=== PATIENT | male | born 1975 | race Two or more races ===

== ENCOUNTER 2018-11-08 12:51 | Inpatient (IN) | payer MEDICARE, MEDICAID ==
[~2018-11-08 12:51] MED LIST: KETOROLAC TROMETHAMINE 60 MG/2 ML SDV ONE; LIDOCAINE 2% INJ-PF (20 MG/ML) 2 ML AMPUL ONE; METOCLOPRAMIDE HCL INJ/PF 10 MG/2 ML SDV ONE; ONDANSETRON HCL INJ/PF 4 MG/2 ML SDV ONE; PHENYLEPHRINE HCL INJ/PF 10 MG/1 ML SDV ONE; SUCCINYLCHOLINE CHLORIDE INJ 200 MG/10 ML VIAL ONE
[2018-11-08] MEDS ORDERED: MORPHINE SULFATE 10 MG/ML INJ IV ONE (13:39)
[2018-11-08] MEDS ORDERED: ONDANSETRON HCL INJ/PF 4 MG/2 ML SDV IV ONE (13:40)
[2018-11-08] MEDS ORDERED: CEFTRIAXONE 1 GM/D5W RTU 1 GM/50 ML RTUPB IV ONE (13:40)
[2018-11-08] MEDS ORDERED: NORMAL SALINE 1000 ML 1,000 ML IV ONE (13:40)
[2018-11-08] MEDS ORDERED: VANCOMYCIN HCL INJ 1000 MG VIAL IV ONE (13:40)
--- NOTE | 2018-11-08 13:42 | ER Document Report ---
ED Medical Screen (RME) - General Chief Complaint: Foot Injury Stated Complaint: LEFT FOOT INJURY Time Seen by Provider: 11/08/18 13:37 TRAVEL OUTSIDE OF THE [place] IN LAST 30 DAYS: No - HPI Notes: 11/08/18 13:41 Patient is a 43-year-old male with a history of asthma, seizures, insulin- dependent diabetes who presents complaining of left foot redness, swelling, purulent discharge, severe pain that developed over the past 3 days. He is still able to eat and drink, but does have a decreased p.o. intake because of the pain. He is urinating normally and having normal bowel movements. Denies ROJAS, fever, neck pain, URI, CP, SOB, Abd pain, dysuria, back pain. I have treated and performed a rapid initial assessment of this patient. A comprehensive ED assessment and evaluation of the patient, analysis of test results and completion of medical decision making process will be conducted by additional ED providers. PHYSICAL EXAMINATION: GENERAL: Well-appearing, well-nourished and in no acute distress. A&Ox4. Answers questions appropriately. LUNGS: Breath sounds clear to auscultation bilaterally and equal. No wheezes rales or rhonchi. HEART: Regular rate and rhythm without murmurs, rubs, gallops. Lt foot: + significant erythema, fluctuance, purulence, swelling, and tenderness noted (primarily near 5th digit/lateral dorsal foot). - Related Data Allergies/Adverse Reactions: No Known Allergies Allergy (Verified 11/08/18 13:02) Physical Exam - Vital signs Vitals: Temp Pulse Resp BP Pulse Ox 98.1 F 107 H 26 H 127/82 H 100 11/08/18 13:30 11/08/18 13:30 11/08/18 13:30 11/08/18 13:30 11/08/18 13:30 Course - Vital Signs Vital signs: Temp Pulse Resp BP Pulse Ox 98.1 F 107 H 26 H 127/82 H 100 11/08/18 13:30 11/08/18 13:30 11/08/18 13:30 11/08/18 13:30 11/08/18 13:30
--- NOTE | 2018-11-08 15:13 | RADIOLOGY REPORT (SQ) ---
EXAM DESCRIPTION: FOOT LEFT COMPLETE COMPLETED DATE/TIME: 11/08/2018 3:01 pm REASON FOR STUDY: significant infection lateral foot/5th digit; DM COMPARISON: None. NUMBER OF VIEWS: Three views. TECHNIQUE: AP, lateral and oblique radiographic images acquired of the left foot. LIMITATIONS: None. FINDINGS: MINERALIZATION: Normal. BONES: No acute fracture or dislocation. No worrisome bone lesions. JOINTS: Intact. SOFT TISSUES: Gas in the soft tissues of the base of the proximal 5th phalanx. No foreign body. OTHER: No other significant finding. IMPRESSION: No evidence of osteomyelitis. TECHNICAL DOCUMENTATION: JOB ID: [id number] [employer]- All Rights Reserved Reading location - IP/workstation name: [email or web address]
[2018-11-08] MEDS ORDERED: PIPERACILLIN/TAZOBACTAM 3.375 GM VIAL IV ONE (15:19)
[2018-11-08 15:26] LABS: VENOUS BLOOD BASE EXCESS 6.9 mmol/L; VENOUS BLOOD HCO3 33.4 mmol/L (20-32); VENOUS BLOOD PCO2 55.7 mmHg (35-63); VENOUS BLOOD PH 7.4 (7.30-7.42)
--- NOTE | 2018-11-08 15:50 | ER Document Report ---
ED General - General Chief Complaint: Foot Injury Stated Complaint: LEFT FOOT INJURY Time Seen by Provider: 11/08/18 13:37 Notes: Patient is a 43-year-old male with insulin-dependent diabetes mellitus that presents to the emergency department for chief complaint of left toe pain and foot pain. Patient states he noticed 2 days ago, that his foot was hurting him and got progressively worse, started getting red, and draining pus to the point he decided come to the emergency department. Denies prior history of wound infections, diabetic foot ulcers. He is on Levemir, is not sure what his sugars been running, [place] is from [place] town, [place] He currently rates his pain as a 9 out of 10 describes it as a severe pain in his foot, radiating up the leg. Denies any fevers, chills, night sweats, nausea, vomiting or abdominal pain. Past Medical History: Diabetes mellitus, seizure disorder, asthma Past Surgical History: Hernia repair Social History: Admits to smoking cigarettes, occasional alcohol use, denies illicit drug use. Family History: Reviewed and noncontributory for presenting illness Allergies: Reviewed, see documented allergy list. REVIEW OF SYSTEMS: Other than noted above, the 12 point review of systems was reviewed with the patient and were negative, all pertinent findings are included in the HPI. PHYSICAL EXAMINATION: Vital signs reviewed, nursing noted reviewed. GENERAL: Patient appears rather uncomfortable on exam HEAD: Atraumatic, normocephalic. EYES: Eyes appear normal, extraocular movements intact, sclera anicteric, conjunctiva are normal. ENT: nares patent, oropharynx clear without exudates. Moist mucous membranes. NECK: Normal range of motion, supple without lymphadenopathy LUNGS: Breath sounds clear to auscultation bilaterally and equal. No wheezes rales or rhonchi. HEART: Heart rate tachycardic, regular rhythm. ABDOMEN: Soft, nontender, normoactive bowel sounds. No rebound, guarding, or rigidity. No masses appreciated. EXTREMITIES: The left small toe, has ulcerations, purulent drainage, erythema, and tenderness to palpation, there is associated edema, with erythema extending proximally to the mid metatarsal, concerning for deep infection. There is no lymphangitis of the calf or thigh, the rest the patient's extremity exam is essentially unremarkable. NEUROLOGICAL: No focal neurological deficits. Moves all extremities spontaneously Motor and sensory grossly intact on exam. PSYCH: Normal mood, normal affect. SKIN: Warm, Dry, normal turgor, no rashes or lesions noted on exposed skin TRAVEL OUTSIDE OF THE [place] IN LAST 30 DAYS: No - Related Data Allergies/Adverse Reactions: No Known Allergies Allergy (Verified 11/08/18 13:02) Past Medical History - Social History Smoking Status: Current Every Day Smoker Frequency of alcohol use: None Drug Abuse: Marijuana Family History: Reviewed & Not Pertinent Patient has suicidal ideation: No Patient has homicidal ideation: No Pulmonary Medical History: Reports: Hx Asthma Neurological Medical History: Reports: Hx Seizures Endocrine Medical History: Reports: Hx Diabetes Mellitus Type 1 Renal/ Medical History: Denies: Hx Peritoneal Dialysis Past Surgical History: Reports: Hx Abdominal Surgery - hernia Physical Exam - Vital signs Vitals: Temp Pulse Resp BP Pulse Ox 98.1 F 107 H 26 H 127/82 H 100 11/08/18 13:30 11/08/18 13:30 11/08/18 13:30 11/08/18 13:30 11/08/18 13:30 Course - Re-evaluation Re-evalutation: Patient seen and examined vital signs reviewed. Laboratory data and imaging were ordered as appropriate for the patient's presen ting symptoms and complaint, with consideration of any critical or life threatening conditions that may be associated with their obtained history and exam as noted above. Patient was treated with IV fluids, morphine and Zofran, also started on IV Zosyn and vancomycin for broad-spectrum coverage of diabetic foot ulcer, with concern for possible osteomyelitis. wet gangrene, and was therefore addit ionally given IV clindamycin Results were reviewed when available and demonstrated gas gangrene noted on x- rays, patient had a mild leukocytosis, but clinically this is a concerning infection, and I called surgery to evaluate the patient as well as internal medicine to admit him. The patient was re-evaluated and was stable, from hemodynamic standpoint, after discussing with surgery, Dr. Zayas, they will plan to take him to the operating room for surgical amputation, and debridement of the patient's foot. Evaluation was most consistent with gas gangrene and wet gangrene of the right fourth and fifth digits of the foot, cellulitis Results were discussed with the patient at this point after careful consideration I feel that that patient should be admitted to the hospital. This was discussed with the patient that it is in the best interest for their care to be admitted for further evaluation and management. Patient agreed with this plan of care. A call was placed to the admitted physician, Dr. William who graciously accepted the patient onto their service. *Note is created using voice recognition software and may contain spelling, syntax or grammatical errors. Laboratory 11/08/18 11/08/18 11/08/18 14:50 14:50 16:30 WBC RBC Hgb Hct MCV MCH MCHC RDW Plt Count Seg Neutrophils % Lymphocytes % Monocytes % Eosinophils % Basophils % Absolute Neutrophils Absolute Lymphocytes Absolute Monocytes Absolute Eosinophils Absolute Basophils ESR VBG pH 7.40 VBG pCO2 55.7 VBG HCO3 33.4 H VBG Base Excess 6.9 Sodium Cancelled Potassium Cancelled Chloride Cancelled Carbon Dioxide Cancelled Anion Gap Cancelled BUN Cancelled Creatinine Cancelled Est GFR ( Amer) Cancelled Est GFR (Non-Af Amer) Cancelled Glucose Cancelled Hemoglobin A1c % Calcium Cancelled Total Bilirubin Cancelled Direct Bilirubin Cancelled Neonat Total Bilirubin Cancelled Neonat Direct Bilirubin Cancelled Neonat Indirect Bili Cancelled AST Cancelled ALT Cancelled Alkaline Phosphatase Cancelled Creatine Kinase C-Reactive Protein Total Protein Cancelled Albumin Cancelled Triglycerides 118 Cholesterol 179.47 LDL Cholesterol Direct 118 H VLDL Cholesterol 24.0 HDL Cholesterol 50 11/08/18 11/08/18 11/08/18 16:34 16:34 16:34 WBC 10.7 H RBC 4.48 Hgb 12.1 L Hct 36.6 L MCV 82 MCH 27.1 MCHC 33.1 RDW 13.6 Plt Count 563 H Seg Neutrophils % 61.8 Lymphocytes % 24.9 Monocytes % 7.6 Eosinophils % 4.8 Basophils % 0.9 Absolute Neutrophils 6.6 Absolute Lymphocytes 2.7 Absolute Monocytes 0.8 Absolute Eosinophils 0.5 Absolute Basophils 0.1 ESR 101 H VBG pH VBG pCO2 VBG HCO3 VBG Base Excess Sodium 139.2 Potassium 3.7 Chloride 97 L Carbon Dioxide 31 H Anion Gap 11 BUN 11 Creatinine 0.44 L Est GFR ( Amer) > 60 Est GFR (Non-Af Amer) > 60 Glucose 103 Hemoglobin A1c % Calcium 10.0 Total Bilirubin 0.3 Direct Bilirubin 0.3 Neonat Total Bilirubin Not Reportable Neonat Direct Bilirubin Not Reportable Neonat Indirect Bili Not Reportable AST 19 ALT 23 Alkaline Phosphatase 219 H Creatine Kinase C-Reactive Protein 21.4 H Total Protein 8.1 Albumin 4.1 Triglycerides Cholesterol LDL Cholesterol Direct VLDL Cholesterol HDL Cholesterol 11/08/18 11/08/18 16:34 16:34 WBC RBC Hgb Hct MCV MCH MCHC RDW Plt Count Seg Neutrophils % Lymphocytes % Monocytes % Eosinophils % Basophils % Absolute Neutrophils Absolute Lymphocytes Absolute Monocytes Absolute Eosinophils Absolute Basophils ESR VBG pH VBG pCO2 VBG HCO3 VBG Base Excess Sodium Potassium Chloride Carbon Dioxide Anion Gap BUN Creatinine Est GFR ( Amer) Est GFR (Non-Af Amer) Glucose Hemoglobin A1c % 12.2 H Calcium Total Bilirubin Direct Bilirubin Neonat Total Bilirubin Neonat Direct Bilirubin Neonat Indirect Bili AST ALT Alkaline Phosphatase Creatine Kinase 36 L C-Reactive Protein Total Protein Albumin Triglycerides Cholesterol LDL Cholesterol Direct VLDL Cholesterol HDL Cholesterol Foot X-Ray 11/08/18 13:39 IMPRESSION: No evidence of osteomyelitis. - Vital Signs Vital signs: Temp Pulse Resp BP Pulse Ox 97.8 F 78 14 137/65 H 100 11/08/18 21:36 11/08/18 21:36 11/08/18 21:36 11/08/18 21:36 11/08/18 21:36 - Laboratory Result Diagrams: 11/08/18 16:34 11/08/18 16:34 Laboratory results interpreted by me: 11/08/18 11/08/18 11/08/18 14:50 16:30 16:34 WBC 10.7 H Hgb 12.1 L Hct 36.6 L Plt Count 563 H ESR VBG HCO3 33.4 H Chloride Carbon Dioxide Creatinine Hemoglobin A1c % Alkaline Phosphatase Creatine Kinase C-Reactive Protein LDL Cholesterol Direct 118 H 11/08/18 11/08/18 11/08/18 16:34 16:34 16:34 WBC Hgb Hct Plt Count ESR 101 H VBG HCO3 Chloride 97 L Carbon Dioxide 31 H Creatinine 0.44 L Hemoglobin A1c % Alkaline Phosphatase 219 H Creatine Kinase 36 L C-Reactive Protein 21.4 H LDL Cholesterol Direct 11/08/18 16:34 WBC Hgb Hct Plt Count ESR VBG HCO3 Chloride Carbon Dioxide Creatinine Hemoglobin A1c % 12.2 H Alkaline Phosphatase Creatine Kinase C-Reactive Protein LDL Cholesterol Direct Discharge - Discharge Clinical Impression: Cellulitis of foot, Wet gangrene, Diabetic infection of left foot Condition: Stable Disposition: ADMITTED INPATIENT Admitting Provider: Nataliia (Hospitalist) Unit Admitted: OR
[2018-11-08] MEDS ORDERED: CLINDAMYCIN 600 MG/D5W RTU 600 MG/50 ML RTUPB IV ONE (15:59)
[2018-11-08] MEDS ORDERED: FENTANYL CITRATE INJ/PF 100 MCG/2 ML AMPUL IV ONE (16:38)
[2018-11-08 16:48] LABS: ABSOLUTE BASOPHILS # (AUTO) 0.1 10^3/uL (0.0-0.2); ABSOLUTE EOSINOPHILS # (AUTO) 0.5 10^3/uL (0.0-0.6); ABSOLUTE LYMPHOCYTES (AUTO) 2.7 10^3/uL (0.5-4.7); ABSOLUTE MONOCYTES (AUTO) 0.8 10^3/uL (0.1-1.4); ABSOLUTE NEUT (AUTO) 6.6 10^3/uL (1.7-8.2); BASOPHILS % (AUTO) 0.9 % (0-2); EOSINOPHILS % (AUTO) 4.8 % (0-6); HEMATOCRIT 36.6 % (37.9-51.0); HEMOGLOBIN 12.1 g/dL (13.5-17.0); LYMPHOCYTES % (AUTO) 24.9 % (13-45); MEAN CORPUSCULAR HEMOGLOBIN 27.1 pg (27.0-33.4); MEAN CORPUSCULAR HGB CONC 33.1 g/dL (32.0-36.0); MEAN CORPUSCULAR VOLUME 82 fl (80-97); MONOCYTES % (AUTO) 7.6 % (3-13); PLATELET COUNT 563 10^3/uL (150-450); RED BLOOD COUNT 4.48 10^6/uL (4.35-5.55); RED CELL DISTRIBUTION WIDTH 13.6 % (11.5-14.0); SEGMENTED NEUTROPHILS % (AUTO) 61.8 % (42-78); TOTAL CELLS COUNTED % (AUTO) 100 %; WHITE BLOOD COUNT 10.7 10^3/uL (4.0-10.5)
[2018-11-08 17:09] LABS: ALANINE AMINOTRANSFERASE 23 U/L (21-72); ALBUMIN 4.1 g/dL (3.5-5.0); ALKALINE PHOSPHATASE 219 U/L (38-126); ANION GAP 11 (5-19); ASPARTATE AMINO TRANSFERASE 19 U/L (17-59); BILIRUBIN,DIRECT 0.3 mg/dL (0.0-0.4); BILIRUBIN,TOTAL 0.3 mg/dL (0.2-1.3); BLOOD UREA NITROGEN 11 mg/dL (7-20); C-REACTIVE PROTEIN 21.4 mg/L (<10.0); CARBON DIOXIDE 31 mmol/L (22-30); CHLORIDE 97 mmol/L (98-107); GLUCOSE 103 mg/dL (75-110); POTASSIUM 3.7 mmol/L (3.6-5.0); SODIUM 139.2 mmol/L (137-145); TOTAL PROTEIN 8.1 g/dL (6.3-8.2)
[2018-11-08] MEDS ORDERED: ACETAMINOPHEN 325 MG TABLET PO PRN (17:47)
[2018-11-08] MEDS ORDERED: DEXTROSE 50%-WATER 25 GM/50 ML DISP.SYRIN IV PRN ×4 (17:47→18:04)
[2018-11-08] MEDS ORDERED: PROMETHAZINE HCL INJ 25 MG/1 ML VIAL IV PRN ×3 (17:47→19:55)
[2018-11-08] MEDS ORDERED: DEXTROSE 40% GEL 15 GM TUBE PO PRN ×4 (17:47→18:04)
[2018-11-08] MEDS ORDERED: TEMAZEPAM 7.5 MG CAPSULE PO PRN (17:47)
[2018-11-08] MEDS ORDERED: ONDANSETRON 4 MG TAB.RAPDIS PO PRN (17:47)
[2018-11-08] MEDS ORDERED: GLUCAGON,HUMAN RECOMB 1 MG INJ SUBCUT PRN (17:47)
[2018-11-08] MEDS ORDERED: VANCOMYCIN HCL 0 MG in DEXTROSE 5%-WATER 250 ML IV NR (18:00)
[2018-11-08] MEDS ORDERED: VANCOMYCIN HCL INJ 1000 MG VIAL IV PRN (18:03)
[2018-11-08] MEDS ORDERED: GLUCAGON,HUMAN RECOMB 1 MG INJ IM PRN (18:04)
--- NOTE | 2018-11-08 18:04 | PDOC H&P ---
History of Present Illness Admission Date/PCP: 11/08/18 17:24 History of Present Illness: MURALI MILLAN is a 43 year old male past medical history of diabetes, seizure disorder currently not any medication, does not remember the last time he had a seizure, asthma, tobacco abuse, hypertension, presented to ED complaining of left lower extremity pain. He says about to 3 days ago he started to notice a blister on the dorsal aspect of left fifth metatarsal which subsequently popped and he noticed progressively worsening pain, swelling, erythema. Pain is constant, sharp, radiating proximally. Denies any trauma to the foot, compliant with his diabetic medication, denies any fever, chills, nausea, vomiting, diarrhea, constipation or any urinary symptoms. Foot x-ray negative for osteomyelitis however elevated CRP/ESR. Surgery was consulted and plan is for possible surgery tonight. Past Medical History Pulmonary Medical History: Reports: Asthma Neurological Medical History: Reports: Seizures Endocrine Medical History: Reports: Diabetes Mellitus Type 1 Social History Smoking Status: Current Every Day Smoker Family History Parental Family History Reviewed: Yes Children Family History Reviewed: Yes Sibling(s) Family History Reviewed.: Yes Medication/Allergy Allergies/Adverse Reactions: No Known Allergies Allergy (Verified 11/08/18 13:02) Physical Exam Vital Signs: Temp Pulse Resp BP Pulse Ox 98.1 F 107 H 26 H 127/82 H 100 11/08/18 13:30 11/08/18 13:30 11/08/18 13:30 11/08/18 13:30 11/08/18 13:30 Intake & Output 11/07/18 11/08/18 11/09/18 06:59 06:59 06:59 Intake Total 1000 Balance 1000 Weight 54.4 kg General appearance: PRESENT: mild distress Neck exam: ABSENT: carotid bruit, JVD, lymphadenopathy, thyromegaly Respiratory exam: PRESENT: clear to auscultation mila. ABSENT: rales, rhonchi, wheezes Cardiovascular exam: PRESENT: RRR. ABSENT: diastolic murmur, rubs, systolic murmur GI/Abdominal exam: PRESENT: normal bowel sounds, soft. ABSENT: distended, gu arding, mass, organolmegaly, rebound, tenderness Extremities exam: PRESENT: other - Left metatarsal dorsal aspect ulcerations, purulent drainage, erythema, and tenderness to palpation, there is associated edema, with erythema extending t foot swelling. Neurological exam: PRESENT: alert, awake, oriented to person, oriented to place, oriented to time, oriented to situation, CN II-XII grossly intact. ABSENT: motor sensory deficit Results Laboratory Results: 11/08/18 16:34 11/08/18 16:34 11/08/18 11/08/18 11/08/18 14:50 14:50 16:34 WBC 10.7 H RBC 4.48 Hgb 12.1 L Hct 36.6 L MCV 82 MCH 27.1 MCHC 33.1 RDW 13.6 Plt Count 563 H Seg Neutrophils % 61.8 Lymphocytes % 24.9 Monocytes % 7.6 Eosinophils % 4.8 Basophils % 0.9 Absolute Neutrophils 6.6 Absolute Lymphocytes 2.7 Absolute Monocytes 0.8 Absolute Eosinophils 0.5 Absolute Basophils 0.1 VBG pH 7.40 VBG pCO2 55.7 VBG HCO3 33.4 H VBG Base Excess 6.9 Sodium Cancelled Potassium Cancelled Chloride Cancelled Carbon Dioxide Cancelled Anion Gap Cancelled BUN Cancelled Creatinine Cancelled Est GFR ( Amer) Cancelled Est GFR (Non-Af Amer) Cancelled Glucose Cancelled Calcium Cancelled Total Bilirubin Cancelled AST Cancelled ALT Cancelled Alkaline Phosphatase Cancelled C-Reactive Protein Total Protein Cancelled Albumin Cancelled 11/08/18 16:34 WBC RBC Hgb Hct MCV MCH MCHC RDW Plt Count Seg Neutrophils % Lymphocytes % Monocytes % Eosinophils % Basophils % Absolute Neutrophils Absolute Lymphocytes Absolute Monocytes Absolute Eosinophils Absolute Basophils VBG pH VBG pCO2 VBG HCO3 VBG Base Excess Sodium 139.2 Potassium 3.7 Chloride 97 L Carbon Dioxide 31 H Anion Gap 11 BUN 11 Creatinine 0.44 L Est GFR ( Amer) > 60 Est GFR (Non-Af Amer) > 60 Glucose 103 Calcium 10.0 Total Bilirubin 0.3 AST 19 ALT 23 Alkaline Phosphatase 219 H C-Reactive Protein 21.4 H Total Protein 8.1 Albumin 4.1 Impressions: Foot X-Ray 11/08/18 13:39 IMPRESSION: No evidence of osteomyelitis. Assessment and Plan - Diagnosis (1) Wet gangrene Is this a current diagnosis for this admission?: Yes Plan: Due to complication of underlying diabetes. Continue IV Zosyn and vancomycin. Follow-up wound and blood culture. Surgery consulted, follow-up recommendation. Will order bilateral lower extremity arterial Doppler. (2) Diabetes mellitus type 2 in nonobese Is this a current diagnosis for this admission?: No Plan: Patient reports compliance. A1c pending. Diabetic diet, sliding scale insulin, pre-meal insulin, and acting insulin, adjust dosage as needed. (3) HTN (hypertension) Is this a current diagnosis for this admission?: No Plan: Reports history of hypertension. Currently normotensive. Monitor vitals. IV hydralazine. Patient can be started on AFSHIN inhibitors if needed. (4) History of seizure Is this a current diagnosis for this admission?: No Plan: Patient endorses history of seizure however does not remember when he had a seizure and he is not taking any seizure meds. Continue seizure precaution. PRN benzos. Outpatient PCP/neurology follow-up.
[2018-11-08] MEDS ORDERED: LORAZEPAM INJ 2 MG/1 ML VIAL IV PRN (18:13)
[2018-11-08] MEDS ORDERED: NICOTINE 7 MG/24 HR PATCH.TD24 TD PRN (18:14)
--- NOTE | 2018-11-08 18:20 | PDOC CONSULTATION ---
Consultation Consult Date: 11/08/18 Provider Consulted: CHRISTY YOUNG Consult reason:: diabetic foot infection History of Present Illness Admission Date/PCP: 11/08/18 17:24 History of Present Illness: MURALI MILLAN is a 43 year old male past medical history of diabetes, seizure disorder currently not any medication, does not remember the last time he had a seizure, asthma, tobacco abuse, hypertension, presented to ED complaining of left lower extremity pain. He says about to 3 days ago he started to notice a blister on the dorsal aspect of left fifth metatarsal which subsequently popped and he noticed progressively worsening pain, swelling, erythema. Pain is constant, sharp, radiating proximally. Denies any trauma to the foot, compliant with his diabetic medication, denies any fever, chills, nausea, vomiting, diarrhea, constipation or any urinary symptoms. Past Medical History Pulmonary Medical History: Reports: Asthma Neurological Medical History: Reports: Seizures Endocrine Medical History: Reports: Diabetes Mellitus Type 1 Past Surgical History Past Surgical History: Reports: Other - inguinal hernia repair, right Social History Smoking Status: Current Every Day Smoker Family History Parental Family History Reviewed: No Children Family History Reviewed: NA Sibling(s) Family History Reviewed.: NA Medication/Allergy Allergies/Adverse Reactions: No Known Allergies Allergy (Verified 11/08/18 13:02) Review of Systems Constitutional: ABSENT: chills, fever(s), headache(s), weight gain, weight loss Eyes: ABSENT: visual disturbances Ears: ABSENT: hearing changes Nose, Mouth, and Throat: ABSENT: as per HPI, headache(s), mouth pain, sore throat, vertigo, other Breasts: ABSENT: as per HPI, other Cardiovascular: ABSENT: as per HPI, chest pain, dyspnea on exertion, edema, orthropnea, palpitations, other Respiratory: ABSENT: as per HPI, cough, dyspnea, hemoptysis, sputum, other Gastrointestinal: ABSENT: as per HPI, abdominal pain, bloating, coffee ground emesis, constipation, diarrhea, dysphagia, heartburn, hematemesis, hematochezia, melena, nausea, vomiting, other Genitourinary: ABSENT: dysuria, hematuria Musculoskeletal: PRESENT: other - left foot swelling and pain Integumentary: ABSENT: rash, wounds Neurological: ABSENT: abnormal gait, abnormal speech, confusion, dizziness, focal weakness, syncope Psychiatric: ABSENT: anxiety, depression, homidical ideation, suicidal ideation Endocrine: ABSENT: cold intolerance, heat intolerance, polydipsia, polyuria Hematologic/Lymphatic: ABSENT: easy bleeding, easy bruising Physical Exam Vital Signs: Temp Pulse Resp BP Pulse Ox 98.1 F 107 H 26 H 127/82 H 100 11/08/18 13:30 11/08/18 13:30 11/08/18 13:30 11/08/18 13:30 11/08/18 13:30 Intake & Output 11/07/18 11/08/18 11/09/18 06:59 06:59 06:59 Intake Total 1000 Balance 1000 Weight 54.4 kg General appearance: PRESENT: disheveled Head exam: PRESENT: normocephalic Eye exam: PRESENT: EOMI Ear exam: PRESENT: normal external ear exam Mouth exam: PRESENT: moist Teeth exam: PRESENT: poor dentation Neck exam: PRESENT: full ROM Respiratory exam: PRESENT: clear to auscultation mila Cardiovascular exam: PRESENT: RRR Pulses: PRESENT: normal radial pulses, normal femoral pulses GI/Abdominal exam: PRESENT: soft Rectal exam: PRESENT: deferred Extremities exam: PRESENT: other - left 4th 5th toe web spce draining pus ulcer on dosal aspect of left 5th toe cellulitis extending up to mid forefoot. Psychiatric exam: PRESENT: appropriate affect Skin exam: PRESENT: dry Results Laboratory Results: 11/08/18 16:34 11/08/18 16:34 11/08/18 11/08/18 11/08/18 14:50 14:50 16:34 WBC 10.7 H RBC 4.48 Hgb 12.1 L Hct 36.6 L MCV 82 MCH 27.1 MCHC 33.1 RDW 13.6 Plt Count 563 H Seg Neutrophils % 61.8 Lymphocytes % 24.9 Monocytes % 7.6 Eosinophils % 4.8 Basophils % 0.9 Absolute Neutrophils 6.6 Absolute Lymphocytes 2.7 Absolute Monocytes 0.8 Absolute Eosinophils 0.5 Absolute Basophils 0.1 VBG pH 7.40 VBG pCO2 55.7 VBG HCO3 33.4 H VBG Base Excess 6.9 Sodium Cancelled Potassium Cancelled Chloride Cancelled Carbon Dioxide Cancelled Anion Gap Cancelled BUN Cancelled Creatinine Cancelled Est GFR ( Amer) Cancelled Est GFR (Non-Af Amer) Cancelled Glucose Cancelled Calcium Cancelled Total Bilirubin Cancelled AST Cancelled ALT Cancelled Alkaline Phosphatase Cancelled C-Reactive Protein Total Protein Cancelled Albumin Cancelled 11/08/18 16:34 WBC RBC Hgb Hct MCV MCH MCHC RDW Plt Count Seg Neutrophils % Lymphocytes % Monocytes % Eosinophils % Basophils % Absolute Neutrophils Absolute Lymphocytes Absolute Monocytes Absolute Eosinophils Absolute Basophils VBG pH VBG pCO2 VBG HCO3 VBG Base Excess Sodium 139.2 Potassium 3.7 Chloride 97 L Carbon Dioxide 31 H Anion Gap 11 BUN 11 Creatinine 0.44 L Est GFR ( Amer) > 60 Est GFR (Non-Af Amer) > 60 Glucose 103 Calcium 10.0 Total Bilirubin 0.3 AST 19 ALT 23 Alkaline Phosphatase 219 H C-Reactive Protein 21.4 H Total Protein 8.1 Albumin 4.1 Impressions: Foot X-Ray 11/08/18 13:39 IMPRESSION: No evidence of osteomyelitis. Assessment & Plan - Plan Summary Plan Summary: left diabtic foot infection with gas gangrene noted in left lat foot 4th and 5th toe infection recommend uregent left 4th and 5th toe amputation. pt need immediate surgey due to spreading cellulitis risks benifits discussed including need for additional surgery if infection cannot be cleared with toe amp we discussed poss future left bka he understands and ageees to proceed.
[2018-11-08 19:14] LABS: CHOLESTEROL 179.47 mg/dL (0-200); TRIGLYCERIDES 118 mg/dL (<150)
[2018-11-08 19:28] LABS: DIRECT LDL 118 mg/dL (<100)
[2018-11-08] MEDS ORDERED: ACETAMINOPHEN 1,000 MG/100 ML RTUPB IV ONE (19:47)
[2018-11-08] MEDS ORDERED: DEXMEDETOMIDINE INJ 80 MCG/20 ML VIAL IV ONE (19:47)
[2018-11-08] MEDS ORDERED: FENTANYL CITRATE INJ/PF 100 MCG/2 ML AMPUL ONE (19:47)
[2018-11-08] MEDS ORDERED: KETAMINE HCL INJ 500 MG/10 ML VIAL ONE (19:47)
[2018-11-08] MEDS ORDERED: PROPOFOL INJ 200 MG/20 ML VIAL IV ONE (19:47)
[2018-11-08] MEDS ORDERED: MIDAZOLAM 2 MG/2 ML INJ ONE (19:47)
[2018-11-08] MEDS ORDERED: FENTANYL CITRATE INJ/PF 100 MCG/2 ML AMPUL IV PRN ×3 (19:55)
[2018-11-08] MEDS ORDERED: ONDANSETRON HCL INJ/PF 4 MG/2 ML SDV IV PRN (19:55)
[2018-11-08] MEDS ORDERED: DIPHENHYDRAMINE HCL 50 MG/ML VIAL IV PRN (19:55)
[2018-11-08] MEDS ORDERED: MEPERIDINE HCL/PF INJ 25 MG/1 ML DISP.SYRIN IV PRN (19:55)
[2018-11-08] MEDS ORDERED: HYDROMORPHONE HCL INJ/PF 2 MG/ML AMPULE ONE (20:34)
[2018-11-08] MEDS ORDERED: BUPIVACAINE HCL 0.25 % INJ/PF (2.5 MG/1 ML) 30 ML VIAL ONE (20:41)
--- NOTE | 2018-11-08 21:26 | Operative Report ---
Nonrecallable Operative Report DATE OF SURGERY: 11/08/18 PREOPERATIVE DIAGNOSIS: diabetic foot infection left foot POSTOPERATIVE DIAGNOSIS: diabetic foot infection left foot OPERATION: left 4th and 5th toe amputation SURGEON: CHRISTY YOUNG ANESTHESIA: GA TISSUE REMOVED OR ALTERED: left 4 and 5th toes COMPLICATIONS: none ESTIMATED BLOOD LOSS: 25 INTRAOPERATIVE FINDINGS: see dictation PROCEDURE: see dictation
[2018-11-08] MEDS: MORPHINE SULFATE 10 MG/ML INJ IV PRN (22:54)
[2018-11-08] MEDS: INSULIN LISPRO 100 UNIT/ML 3 ML VIAL SUBCUT SCH (22:55)
[2018-11-08] MEDS: INSULIN GLARGINE,HUM.REC.ANLOG 1,000 UNIT/10 ML VIAL SUBCUT SCH (22:55)
[2018-11-08] MEDS: NORMAL SALINE 1000 ML 1,000 ML IV PRN (23:07)
[2018-11-08] MEDS: PIPERACILLIN SODIUM/TAZOBACTAM 4.5 GM in NORMAL SALINE 100 ML IV SCH (23:42)
[2018-11-09] MEDS ORDERED: VANCOMYCIN HCL 1,000 MG in DEXTROSE 5%-WATER 250 ML IV SCH (02:00)
[2018-11-09] MEDS ORDERED: VANCOMYCIN HCL INJ 1000 MG VIAL ONE (02:37)
--- NOTE | 2018-11-09 03:20 | OPERATIVE REPORT E ---
Operative Report NAME: MURALI MILLAN : 1975 AGE: 43Y DATE OF SURGERY: 11/08/2018 ROOM: 330 PREOPERATIVE DIAGNOSIS: LEFT DIABETIC FOOT INFECTION. POSTOPERATIVE DIAGNOSIS: LEFT DIABETIC FOOT INFECTION. OPERATION: Left fourth and fifth toe amputation. SURGEON: CHRISTY YOUNG M.D. PROCEDURE: The patient was brought to the operating room awake, alert, and in stable condition. Placed on the operating table in supine position, induced under general anesthesia, intubated. The left foot and leg were prepped and draped in the usual sterile manner for the procedure. After appropriate time-out and site verification, a racquet-type incision was made on the lateral aspect of the left foot from the web space between the third and fourth toe to the lateral aspect of the base of the fifth metatarsal. The dissection was carried down through subcutaneous tissue with the knife and we continued our dissection with a 10-blade through the subcutaneous tissue and tendon down to the periosteum of the metatarsal bone. Once the incision was complete, we raised the periosteum off the metatarsal and divided both the fourth and fifth one with the bone cutter. We continued our dissection through the muscles with Bovie cautery and then removed the specimen. The base of it appeared to be clean without any further evidence of purulent drainage. The purulent drainage from the specimen was cultured and sent to lab. Once the hemostasis was obtained with Bovie cautery, oversewing the small vessels with 3-0 Vicryl, we then reapproximated the posterior and anterior skin with interrupted placed [id number] 2-0 nylon suture. The wound was then packed with a Xeroform gauze between the placed sutures, as they were placed loosely. A sterile dressing was applied, which completed the procedure. Estimated blood loss was 25 mL. Sponge and needle counts were correct x2. The patient was awakened in the operating room, extubated, and transferred to recovery in stable condition. No complications. DICTATING PHYSICIAN: CHRISTY YOUNG M.D. [id number] PHY#: [id number] ID: [id number] JOB#: [id number] ACCT: [id number] cc:CHRISTY YOUNG M.D. >
[2018-11-09] MEDS ORDERED: PIPERACILLIN/TAZOBACTAM 4.5 GM VIAL IV ONE (03:41)
[2018-11-09] MEDS: PIPERACILLIN SODIUM/TAZOBACTAM 4.5 GM in NORMAL SALINE 100 ML IV SCH ×4 (06:05→23:59)
[2018-11-09 06:09] LABS: ABSOLUTE BASOPHILS # (AUTO) 0.1 10^3/uL (0.0-0.2); ABSOLUTE EOSINOPHILS # (AUTO) 0.4 10^3/uL (0.0-0.6); ABSOLUTE MONOCYTES (AUTO) 0.7 10^3/uL (0.1-1.4); ABSOLUTE NEUT (AUTO) 4.6 10^3/uL (1.7-8.2); EOSINOPHILS % (AUTO) 4.9 % (0-6); HEMATOCRIT 32.3 % (37.9-51.0); HEMOGLOBIN 10.6 g/dL (13.5-17.0); LYMPHOCYTES % (AUTO) 26.2 % (13-45); MEAN CORPUSCULAR HEMOGLOBIN 26.8 pg (27.0-33.4); MEAN CORPUSCULAR HGB CONC 32.7 g/dL (32.0-36.0); MEAN CORPUSCULAR VOLUME 82 fl (80-97); MONOCYTES % (AUTO) 8.5 % (3-13); PLATELET COUNT 408 10^3/uL (150-450); RED BLOOD COUNT 3.94 10^6/uL (4.35-5.55); RED CELL DISTRIBUTION WIDTH 13.7 % (11.5-14.0); SEGMENTED NEUTROPHILS % (AUTO) 59.4 % (42-78); TOTAL CELLS COUNTED % (AUTO) 100 %; WHITE BLOOD COUNT 7.8 10^3/uL (4.0-10.5)
[2018-11-09] MEDS: MORPHINE SULFATE 10 MG/ML INJ IV PRN ×6 (06:22→23:07)
[2018-11-09] MEDS: PANTOPRAZOLE SODIUM 40 MG TABLET.DR PO SCH ×2 (06:22→17:46)
[2018-11-09 06:34] LABS: ANION GAP 8 (5-19); BLOOD UREA NITROGEN 10 mg/dL (7-20); CALCIUM 8.5 mg/dL (8.4-10.2); CARBON DIOXIDE 29 mmol/L (22-30); CHLORIDE 96 mmol/L (98-107); GLUCOSE 364 mg/dL (75-110); POTASSIUM 4.2 mmol/L (3.6-5.0); SODIUM 132.7 mmol/L (137-145)
[2018-11-09] MEDS: INSULIN LISPRO 100 UNIT/ML 3 ML VIAL SUBCUT SCH ×4 (08:07→21:43)
[2018-11-09] MEDS ORDERED: DIPHENHYDRAMINE HCL 25 MG CAPSULE PO PRN (09:18)
[2018-11-09] MEDS: ENOXAPARIN SODIUM INJ 40 MG/0.4 ML DISP.SYRIN SUBCUT SCH (09:31)
--- NOTE | 2018-11-09 10:30 | PDOC PROGRESS REPORT ---
Subjective Progress Note for:: 11/09/18 Subjective:: Having some pain; has not been out of bed. Reason For Visit: DIABETIC FOOT,DIABETES Physical Exam Vital Signs: Temp Pulse Resp BP Pulse Ox 97.8 F 84 17 148/89 H 100 11/09/18 08:18 11/09/18 08:18 11/09/18 08:18 11/09/18 08:18 11/09/18 08:18 Intake & Output 11/08/18 11/09/18 11/10/18 06:59 06:59 06:59 Intake Total 2750 Output Total 950 Balance 1800 Weight 57.3 kg General appearance: PRESENT: no acute distress Extremities exam: PRESENT: other - Dressing removed. No active drainage or foul smell. There is all the moderate cellulitis of the dorsal foot. Massaged and some blood evacuated. The inferior-most suture removed. Wound irrigated after pieces of Xeroform removed between the sutures. Wound redressed Results Laboratory Results: 11/09/18 05:04 11/09/18 05:04 11/08/18 11/08/18 11/08/18 14:50 14:50 16:30 WBC RBC Hgb Hct MCV MCH MCHC RDW Plt Count Seg Neutrophils % Lymphocytes % Monocytes % Eosinophils % Basophils % Absolute Neutrophils Absolute Lymphocytes Absolute Monocytes Absolute Eosinophils Absolute Basophils VBG pH 7.40 VBG pCO2 55.7 VBG HCO3 33.4 H VBG Base Excess 6.9 Sodium Cancelled Potassium Cancelled Chloride Cancelled Carbon Dioxide Cancelled Anion Gap Cancelled BUN Cancelled Creatinine Cancelled Est GFR ( Amer) Cancelled Est GFR (Non-Af Amer) Cancelled Glucose Cancelled Calcium Cancelled Magnesium Total Bilirubin Cancelled AST Cancelled ALT Cancelled Alkaline Phosphatase Cancelled C-Reactive Protein Total Protein Cancelled Albumin Cancelled Triglycerides 118 Cholesterol 179.47 LDL Cholesterol Direct 118 H VLDL Cholesterol 24.0 HDL Cholesterol 50 11/08/18 11/08/18 11/09/18 16:34 16:34 05:04 WBC 10.7 H 7.8 RBC 4.48 3.94 L Hgb 12.1 L 10.6 L Hct 36.6 L 32.3 L MCV 82 82 MCH 27.1 26.8 L MCHC 33.1 32.7 RDW 13.6 13.7 Plt Count 563 H 408 Seg Neutrophils % 61.8 59.4 Lymphocytes % 24.9 26.2 Monocytes % 7.6 8.5 Eosinophils % 4.8 4.9 Basophils % 0.9 1.0 Absolute Neutrophils 6.6 4.6 Absolute Lymphocytes 2.7 2.0 Absolute Monocytes 0.8 0.7 Absolute Eosinophils 0.5 0.4 Absolute Basophils 0.1 0.1 VBG pH VBG pCO2 VBG HCO3 VBG Base Excess Sodium 139.2 Potassium 3.7 Chloride 97 L Carbon Dioxide 31 H Anion Gap 11 BUN 11 Creatinine 0.44 L Est GFR ( Amer) > 60 Est GFR (Non-Af Amer) > 60 Glucose 103 Calcium 10.0 Magnesium Total Bilirubin 0.3 AST 19 ALT 23 Alkaline Phosphatase 219 H C-Reactive Protein 21.4 H Total Protein 8.1 Albumin 4.1 Triglycerides Cholesterol LDL Cholesterol Direct VLDL Cholesterol HDL Cholesterol 11/09/18 05:04 WBC RBC Hgb Hct MCV MCH MCHC RDW Plt Count Seg Neutrophils % Lymphocytes % Monocytes % Eosinophils % Basophils % Absolute Neutrophils Absolute Lymphocytes Absolute Monocytes Absolute Eosinophils Absolute Basophils VBG pH VBG pCO2 VBG HCO3 VBG Base Excess Sodium 132.7 L Potassium 4.2 Chloride 96 L Carbon Dioxide 29 Anion Gap 8 BUN 10 Creatinine 0.48 L Est GFR ( Amer) > 60 Est GFR (Non-Af Amer) > 60 Glucose 364 H Calcium 8.5 Magnesium 1.6 Total Bilirubin AST ALT Alkaline Phosphatase C-Reactive Protein Total Protein Albumin Triglycerides Cholesterol LDL Cholesterol Direct VLDL Cholesterol HDL Cholesterol 11/08/18 16:34 Creatine Kinase 36 L Impressions: Foot X-Ray 11/08/18 13:39 IMPRESSION: No evidence of osteomyelitis. Assessment & Plan - Diagnosis (1) Diabetic infection of left foot Is this a current diagnosis for this admission?: Yes Plan: Impression: Severe diabetic foot infection status post a day 1 left fifth and fourth ray amputations, with wound approximation; assisting soft tissue erythema and edema forefoot. Recommendations: 1. Continue leg elevation, intravenous antibiotics. 2. Additional sutures may require removal pending condition of foot in the next 24 hours. This was explained to the patient.
[2018-11-09] MEDS: IPRATROPIUM/ALBUTEROL 0.5-2.5 MG/3 ML AMPUL NEB PRN (11:04)
[2018-11-09 12:01] LABS: APPEARANCE,URINE CLEAR; BILIRUBIN,URINE NEGATIVE (NEGATIVE); COLOR,URINE STRAW; GLUCOSE, URINE >=500 mg/dL (NEGATIVE); KETONES,URINE NEGATIVE (NEGATIVE); LEUKOCYTE ESTERASE,URINE NEGATIVE (NEGATIVE); NITRITE,URINE NEGATIVE (NEGATIVE); PROTEIN,URINE NEGATIVE (NEGATIVE); URINE SPECIFIC GRAVITY 1.025; UROBILINOGEN,URINE NEGATIVE mg/dL (<2.0)
[2018-11-09] MEDS: NORMAL SALINE 1000 ML 1,000 ML IV PRN ×2 (12:38→23:59)
[2018-11-09] MEDS: VANCOMYCIN HCL 750 MG in DEXTROSE 5%-WATER 250 ML IV SCH ×2 (13:38→21:47)
[2018-11-09] MEDS ORDERED: HYDRALAZINE HCL INJ/PF 20 MG/1 ML SDV IV PRN (14:32)
--- NOTE | 2018-11-09 14:33 | PDOC PROGRESS REPORT ---
Subjective Progress Note for:: 11/09/18 Subjective:: MURALI MILLAN is a 43 year old male past medical history of diabetes, seizure disorder currently not any medication, does not remember the last time he had a seizure, asthma, tobacco abuse, hypertension who was admitted 11/08/2018 for wet gangrene secondary to diabetic foot wound. He is now POD #1 4th and 5th left toe amputations. Patient was seen on morning rounds. He was found resting in bed comfortably on room air. He reports that his pain is well controlled at present. At the time of my to evaluate the patient on his first postoperative day. Patient is concerned by old/dry bloody drainage to dressing; he is reassured this is normal and that his foot will be evaluated shortly. He asks about anticipated discharge today home; hopeful to return to [place] as soon as possible; family visiting in 2 to 3 weeks. He otherwise denies fever, chills, chest pain, palpitations, dyspnea, orthopnea, abdominal pain, nausea vomiting diarrhea. He reports good appetite this morning. He has no other questions or concerns at this time. No concerns per nursing. Reason For Visit: DIABETIC FOOT,DIABETES Physical Exam Vital Signs: Temp Pulse Resp BP Pulse Ox 98.0 F 90 16 144/98 H 100 11/09/18 11:53 11/09/18 11:53 11/09/18 11:53 11/09/18 11:53 11/09/18 11:53 Intake & Output 11/08/18 11/09/18 11/10/18 06:59 06:59 06:59 Intake Total 2850 1000 Output Total 950 Balance 1900 1000 Weight 57.3 kg General appearance: PRESENT: no acute distress, cooperative, thin, well- developed Head exam: PRESENT: atraumatic, normocephalic Eye exam: PRESENT: conjunctiva pink, EOMI, PERRLA. ABSENT: scleral icterus Mouth exam: PRESENT: moist, tongue midline Respiratory exam: PRESENT: clear to auscultation mila, symmetrical, unlabored. ABSENT: rales, rhonchi, wheezes Cardiovascular exam: PRESENT: RRR, +S1, +S2. ABSENT: diastolic murmur, rubs, systolic murmur Pulses: PRESENT: normal dorsalis pedis pul Vascular exam: PRESENT: normal capillary refill GI/Abdominal exam: PRESENT: normal bowel sounds, soft. ABSENT: distended, guarding, mass, organolmegaly, rebound, tenderness Rectal exam: PRESENT: deferred Extremities exam: PRESENT: full ROM, other - Left foot with surgical dressing in place; dried blood noted to lateral aspect. Surgical site not directly visualized.. ABSENT: calf tenderness, clubbing, pedal edema Neurological exam: PRESENT: alert, awake, oriented to person, oriented to place, oriented to time, oriented to situation, CN II-XII grossly intact. ABSENT: motor sensory deficit Psychiatric exam: PRESENT: appropriate affect, normal mood. ABSENT: homicidal ideation, suicidal ideation Skin exam: PRESENT: dry, intact, warm. ABSENT: cyanosis, rash Results Laboratory Results: 11/09/18 05:04 11/09/18 05:04 11/08/18 11/08/18 11/08/18 14:50 14:50 16:30 WBC RBC Hgb Hct MCV MCH MCHC RDW Plt Count Seg Neutrophils % Lymphocytes % Monocytes % Eosinophils % Basophils % Absolute Neutrophils Absolute Lymphocytes Absolute Monocytes Absolute Eosinophils Absolute Basophils VBG pH 7.40 VBG pCO2 55.7 VBG HCO3 33.4 H VBG Base Excess 6.9 Sodium Cancelled Potassium Cancelled Chloride Cancelled Carbon Dioxide Cancelled Anion Gap Cancelled BUN Cancelled Creatinine Cancelled Est GFR ( Amer) Cancelled Est GFR (Non-Af Amer) Cancelled Glucose Cancelled Calcium Cancelled Magnesium Total Bilirubin Cancelled AST Cancelled ALT Cancelled Alkaline Phosphatase Cancelled C-Reactive Protein Total Protein Cancelled Albumin Cancelled Triglycerides 118 Cholesterol 179.47 LDL Cholesterol Direct 118 H VLDL Cholesterol 24.0 HDL Cholesterol 50 Urine Color Urine Appearance Urine pH Ur Specific [place] Urine Protein Urine Glucose (UA) Urine Ketones Urine Blood Urine Nitrite Ur Leukocyte Esterase Urine WBC (Auto) Urine RBC (Auto) 11/08/18 11/08/18 11/09/18 16:34 16:34 05:04 WBC 10.7 H 7.8 RBC 4.48 3.94 L Hgb 12.1 L 10.6 L Hct 36.6 L 32.3 L MCV 82 82 MCH 27.1 26.8 L MCHC 33.1 32.7 RDW 13.6 13.7 Plt Count 563 H 408 Seg Neutrophils % 61.8 59.4 Lymphocytes % 24.9 26.2 Monocytes % 7.6 8.5 Eosinophils % 4.8 4.9 Basophils % 0.9 1.0 Absolute Neutrophils 6.6 4.6 Absolute Lymphocytes 2.7 2.0 Absolute Monocytes 0.8 0.7 Absolute Eosinophils 0.5 0.4 Absolute Basophils 0.1 0.1 VBG pH VBG pCO2 VBG HCO3 VBG Base Excess Sodium 139.2 Potassium 3.7 Chloride 97 L Carbon Dioxide 31 H Anion Gap 11 BUN 11 Creatinine 0.44 L Est GFR ( Amer) > 60 Est GFR (Non-Af Amer) > 60 Glucose 103 Calcium 10.0 Magnesium Total Bilirubin 0.3 AST 19 ALT 23 Alkaline Phosphatase 219 H C-Reactive Protein 21.4 H Total Protein 8.1 Albumin 4.1 Triglycerides Cholesterol LDL Cholesterol Direct VLDL Cholesterol HDL Cholesterol Urine Color Urine Appearance Urine pH Ur Specific [place] Urine Protein Urine Glucose (UA) Urine Ketones Urine Blood Urine Nitrite Ur Leukocyte Esterase Urine WBC (Auto) Urine RBC (Auto) 11/09/18 11/09/18 05:04 11:15 WBC RBC Hgb Hct MCV MCH MCHC RDW Plt Count Seg Neutrophils % Lymphocytes % Monocytes % Eosinophils % Basophils % Absolute Neutrophils Absolute Lymphocytes Absolute Monocytes Absolute Eosinophils Absolute Basophils VBG pH VBG pCO2 VBG HCO3 VBG Base Excess Sodium 132.7 L Potassium 4.2 Chloride 96 L Carbon Dioxide 29 Anion Gap 8 BUN 10 Creatinine 0.48 L Est GFR ( Amer) > 60 Est GFR (Non-Af Amer) > 60 Glucose 364 H Calcium 8.5 Magnesium 1.6 Total Bilirubin AST ALT Alkaline Phosphatase C-Reactive Protein Total Protein Albumin Triglycerides Cholesterol LDL Cholesterol Direct VLDL Cholesterol HDL Cholesterol Urine Color STRAW Urine Appearance CLEAR Urine pH 6.0 Ur Specific [place] 1.025 Urine Protein NEGATIVE Urine Glucose (UA) >=500 H Urine Ketones NEGATIVE Urine Blood NEGATIVE Urine Nitrite NEGATIVE Ur Leukocyte Esterase NEGATIVE Urine WBC (Auto) 0 Urine RBC (Auto) 1 11/08/18 16:34 Creatine Kinase 36 L Impressions: Foot X-Ray 11/08/18 13:39 IMPRESSION: No evidence of osteomyelitis. Assessment and Plan - Diagnosis (1) Diabetic infection of left foot Is this a current diagnosis for this admission?: Yes Plan: Now POD #1 left 4th and 5th toe amputations. Blood cultures are pending. Wound culture shows group B beta strep. Lower extremity ultrasound with arterial Doppler is pending. Surgery has been consulted; appreciate their assistance. Wound care per surgery's expertise. Continue IV vancomycin and Zosyn. (2) Diabetes mellitus type 2 in nonobese Is this a current diagnosis for this admission?: No Plan: A1c 12.2%. Consistent carb diet. Accu-Cheks AC and at bedtime with Humalog for sliding scale coverage. Lantus nightly. menu planner and registered dietitian are consulted. (3) HTN (hypertension) Is this a current diagnosis for this admission?: No Plan: Reports history of hypertension. Hypertensive today; 144/98, though possibly related to pain. We will start lisinopril 5 mg daily; this patient is insulin-dependent, this will provide renal protective properties as well. IV hydralazine as needed for blood pressure control. Continue to monitor blood pressures and adjust medications as required. (4) History of seizure Is this a current diagnosis for this admission?: No Plan: Patient endorses history of seizure however does not remember when he had a seizure and he is not taking any seizure meds. Continue seizure precaution. PRN benzos. Outpatient PCP/neurology follow-up. - Time Time Spent with patient: 25-34 minutes Medications reviewed and adjusted accordingly: Yes Anticipated discharge: Home Within: within 72 hours - pending surgical clearance and negative blood cultures
--- NOTE | 2018-11-09 17:50 | XCELERA REPORT ---
[address] [address] Lower Extremity Arterial Evaluation Name: MURALI MILLAN Age: 43 yrs Gender: Male : 1975 Patient Status: Inpatient Patient Location: [address] [place] [address] Study Date: 11/09/2018 09:46 AM Procedure: A color flow and duplex scan of the lower extremity arteries was performed bilaterally with velocity and waveform anaylsis. Reason For Study: Diabetic foot. Ordering Physician: KULWINDER OSEI Performed By: José Miguel Fritz Measurements and Calculations Right Left FUSING LINE INSPECTOR PSV 112.4 104.2 cm/sec Prox PFA PSV -88.2 -176.8cm/sec Prox SFA PSV 158.1 108.7 cm/sec Mid SFA PSV -76.6 -99.9 cm/sec Dist SFA PSV -67.8 -120.7cm/sec Prox Pop A PSV 66.8 155.4 cm/sec Dist JUNE PSV 63.7 91.8 cm/sec Dist ENTRY LEVEL DRAFTER PSV 104.2 111.3 cm/sec Corey Pedis PSV -68.4 82.9 cm/sec Right Side Arterial Evaluation Normal velocity and triphasic waveforms noted from the Common Femoral artery to the infrageniculate vessels . Ankle Brachial index not obtained.. Interpretation Summary No hemodynamically significant lesions in the bilateral lower extremities, on duplex imaging, at rest. : KULWINDER OSEI > Aneesh Banks
[2018-11-09] MEDS ORDERED: INSULIN DETEMIR 20 UNIT SQ SCH (18:00)
[2018-11-09] MEDS: INSULIN GLARGINE,HUM.REC.ANLOG 1,000 UNIT/10 ML VIAL SUBCUT SCH (21:47)
[2018-11-09] MEDS ORDERED: TRAZODONE HCL 50 MG TABLET PO ONE (22:15)
[2018-11-10] MEDS: MORPHINE SULFATE 10 MG/ML INJ IV PRN ×9 (02:49→23:07)
[2018-11-10] MEDS: PANTOPRAZOLE SODIUM 40 MG TABLET.DR PO SCH ×2 (05:13→17:36)
[2018-11-10] MEDS: PIPERACILLIN SODIUM/TAZOBACTAM 4.5 GM in NORMAL SALINE 100 ML IV SCH ×4 (05:13→23:40)
[2018-11-10 05:34] LABS: HEMATOCRIT 30.2 % (37.9-51.0); MEAN CORPUSCULAR HEMOGLOBIN 27.1 pg (27.0-33.4); MEAN CORPUSCULAR HGB CONC 33.1 g/dL (32.0-36.0); MEAN CORPUSCULAR VOLUME 82 fl (80-97); PLATELET COUNT 440 10^3/uL (150-450); RED BLOOD COUNT 3.69 10^6/uL (4.35-5.55); RED CELL DISTRIBUTION WIDTH 13.7 % (11.5-14.0); WHITE BLOOD COUNT 6.4 10^3/uL (4.0-10.5)
[2018-11-10 05:48] LABS: ANION GAP 5 (5-19); BLOOD UREA NITROGEN 8 mg/dL (7-20); CALCIUM 8.3 mg/dL (8.4-10.2); CARBON DIOXIDE 31 mmol/L (22-30); CHLORIDE 99 mmol/L (98-107); GLUCOSE 192 mg/dL (75-110); POTASSIUM 4.1 mmol/L (3.6-5.0); SODIUM 135.3 mmol/L (137-145)
[2018-11-10] MEDS: VANCOMYCIN HCL 750 MG in DEXTROSE 5%-WATER 250 ML IV SCH ×3 (05:57→22:03)
[2018-11-10 06:42] LABS: ABSOLUTE MONOCYTES # (MANUAL) 0.3 10^3/uL (0.1-1.4); ABSOLUTE NEUTROPHILS# (MANUAL) 3.7 10^3/uL (1.7-8.2); BAND NEUTROPHILS % (MANUAL) 1 % (3-5); BASOPHILS % (MANUAL) 1 % (0-2); EOSINOPHILS % (MANUAL) 5 % (0-6); LYMPHOCYTES % (MANUAL) 32 % (13-45); MONOCYTES % (MANUAL) 4 % (3-13); SEGMENTED NEUTROPHILS % (MAN) 57 % (42-78); TOTAL CELLS COUNTED 100
[2018-11-10 06:43] LABS: HYPOCHROMASIA 1+
[2018-11-10 07:26] LABS: PLATELET COMMENT ADEQUATE
[2018-11-10] MEDS: INSULIN LISPRO 100 UNIT/ML 3 ML VIAL SUBCUT SCH ×4 (07:31→22:02)
[2018-11-10] MEDS: ENOXAPARIN SODIUM INJ 40 MG/0.4 ML DISP.SYRIN SUBCUT SCH (09:27)
[2018-11-10] MEDS: LISINOPRIL 5 MG TABLET PO SCH (09:28)
--- NOTE | 2018-11-10 09:59 | PDOC PROGRESS REPORT ---
Subjective Progress Note for:: 11/10/18 Reason For Visit: DIABETIC FOOT,DIABETES still with pain left foot, sl better Physical Exam Vital Signs: Temp Pulse Resp BP Pulse Ox 97.9 F 84 14 150/87 H 98 11/10/18 07:55 11/10/18 07:55 11/10/18 03:46 11/10/18 07:55 11/10/18 07:55 Intake & Output 11/09/18 11/10/18 11/11/18 06:59 06:59 06:59 Intake Total 2850 3660 Output Total 950 2850 Balance 1900 810 Weight 57.3 kg 59.5 kg General appearance: PRESENT: no acute distress Head exam: PRESENT: normocephalic Eye exam: PRESENT: EOMI Ear exam: PRESENT: normal external ear exam Mouth exam: PRESENT: moist Neck exam: PRESENT: full ROM Respiratory exam: PRESENT: clear to auscultation mila Cardiovascular exam: PRESENT: RRR Pulses: PRESENT: +2 pedal pulses bilateral GI/Abdominal exam: PRESENT: soft Rectal exam: PRESENT: deferred Extremities exam: PRESENT: other - left foot, still swollen cellulitis sl improved wound with min drainage will cont leg elevation for now cont iv abx Results Laboratory Results: 11/10/18 04:57 11/10/18 04:57 11/09/18 11/10/18 11/10/18 11:15 04:57 04:57 WBC 6.4 RBC 3.69 L Hgb 10.0 L Hct 30.2 L MCV 82 MCH 27.1 MCHC 33.1 RDW 13.7 Plt Count 440 Seg Neutrophils % Not Reportable Lymphocytes % Not Reportable Monocytes % Not Reportable Eosinophils % Not Reportable Basophils % Not Reportable Absolute Neutrophils Not Reportable Absolute Lymphocytes Not Reportable Absolute Monocytes Not Reportable Absolute Eosinophils Not Reportable Absolute Basophils Not Reportable Sodium 135.3 L Potassium 4.1 Chloride 99 Carbon Dioxide 31 H Anion Gap 5 BUN 8 Creatinine 0.50 L Est GFR ( Amer) > 60 Est GFR (Non-Af Amer) > 60 Glucose 192 H Calcium 8.3 L Magnesium 1.7 Urine Color STRAW Urine Appearance CLEAR Urine pH 6.0 Ur Specific [place] 1.025 Urine Protein NEGATIVE Urine Glucose (UA) >=500 H Urine Ketones NEGATIVE Urine Blood NEGATIVE Urine Nitrite NEGATIVE Ur Leukocyte Esterase NEGATIVE Urine WBC (Auto) 0 Urine RBC (Auto) 1 06/09/19 20:35 Foot - Left Gram Stain - Final 11/08/18 16:34 Creatine Kinase 36 L Impressions: Foot X-Ray 11/08/18 13:39 IMPRESSION: No evidence of osteomyelitis.
[2018-11-10] MEDS: NORMAL SALINE 1000 ML 1,000 ML IV PRN (13:03)
[2018-11-10] MEDS ORDERED: MAGNESIUM HYDROXIDE SUSP 30 ML UDCUP PO PRN (16:47)
--- NOTE | 2018-11-10 16:54 | PDOC PROGRESS REPORT ---
Subjective Progress Note for:: 11/10/18 Subjective:: MURALI MILLAN is a 43 year old male past medical history of diabetes, seizure disorder currently not any medication, does not remember the last time he had a seizure, asthma, tobacco abuse, hypertension who was admitted 11/08/2018 for wet gangrene secondary to diabetic foot wound. He is now POD #2 4th and 5th left toe amputations. The patient was seen this morning on rounds. He is resting comfortably in bed on room air. Patient endorses throbbing pain to the left foot. The patient expresses anxiety regarding a wound on his right foot between the fourth and fifth toe. He is concerned that this wound will become infected and he will end up with amputation on the right foot as well. Counseled the patient on the importance of controlling his blood glucose, keeping his feet clean and requested nursing staff to address the small fissure wound. Reason For Visit: DIABETIC FOOT,DIABETES Physical Exam Vital Signs: Temp Pulse Resp BP Pulse Ox 97.9 F 81 16 150/87 H 96 11/10/18 07:55 11/10/18 14:00 11/10/18 10:39 11/10/18 07:55 11/10/18 10:39 Intake & Output 11/09/18 11/10/18 11/11/18 06:59 06:59 06:59 Intake Total 2850 3660 1600 Output Total 950 2850 Balance 6025 788 8157 Weight 57.3 kg 59.5 kg General appearance: PRESENT: no acute distress, thin Head exam: PRESENT: atraumatic, normocephalic Eye exam: PRESENT: conjunctiva pink, EOMI, PERRLA. ABSENT: scleral icterus Ear exam: PRESENT: normal external ear exam Mouth exam: PRESENT: moist, tongue midline Teeth exam: PRESENT: poor dentation Neck exam: ABSENT: carotid bruit, JVD, lymphadenopathy, thyromegaly Respiratory exam: PRESENT: clear to auscultation mila, symmetrical, unlabored. ABSENT: rales, rhonchi, wheezes Cardiovascular exam: PRESENT: RRR. ABSENT: diastolic murmur, rubs, systolic murmur Pulses: PRESENT: normal radial pulses, normal dorsalis pedis pul - normal PT pulses on L foot, NGHIA PT pulses Vascular exam: PRESENT: normal capillary refill GI/Abdominal exam: PRESENT: normal bowel sounds, soft. ABSENT: distended, guarding, mass, organolmegaly, rebound, tenderness Rectal exam: PRESENT: deferred Extremities exam: PRESENT: full ROM. ABSENT: calf tenderness, clubbing, pedal edema Musculoskeletal exam: PRESENT: deformity - L 4 & 5 TOE AMPUTATION Neurological exam: PRESENT: alert, awake, oriented to person, oriented to place, oriented to time, oriented to situation Psychiatric exam: PRESENT: appropriate affect, normal mood. ABSENT: homicidal ideation, suicidal ideation Skin exam: PRESENT: dry, intact, warm. ABSENT: cyanosis, rash Results Laboratory Results: 11/10/18 04:57 11/10/18 04:57 11/10/18 11/10/18 04:57 04:57 WBC 6.4 RBC 3.69 L Hgb 10.0 L Hct 30.2 L MCV 82 MCH 27.1 MCHC 33.1 RDW 13.7 Plt Count 440 Seg Neutrophils % Not Reportable Lymphocytes % Not Reportable Monocytes % Not Reportable Eosinophils % Not Reportable Basophils % Not Reportable Absolute Neutrophils Not Reportable Absolute Lymphocytes Not Reportable Absolute Monocytes Not Reportable Absolute Eosinophils Not Reportable Absolute Basophils Not Reportable Sodium 135.3 L Potassium 4.1 Chloride 99 Carbon Dioxide 31 H Anion Gap 5 BUN 8 Creatinine 0.50 L Est GFR ( Amer) > 60 Est GFR (Non-Af Amer) > 60 Glucose 192 H Calcium 8.3 L Magnesium 1.7 11/08/18 20:35 Foot - Left Gram Stain - Final 11/08/18 16:34 Creatine Kinase 36 L Impressions: Foot X-Ray 11/08/18 13:39 IMPRESSION: No evidence of osteomyelitis. Status: Imported from PACS Assessment and Plan - Diagnosis (1) Diabetic infection of left foot Is this a current diagnosis for this admission?: Yes Plan: Now POD #2 left 4th and 5th toe amputations. Blood cultures negative at 48 hours Wound culture shows group B beta strep, and gram-positive cocci in clusters - awaiting final cultures and sensitivities Lower extremity ultrasound with arterial Doppler is negative Surgery has been consulted; appreciate their assistance. Wound care per surgery's expertise. Continue IV vancomycin and Zosyn. (2) Diabetes mellitus type 2 in nonobese Is this a current diagnosis for this admission?: No Plan: A1c 12.2%. Consistent carb diet. Accu-Cheks AC and at bedtime with Humalog for sliding scale coverage. Lantus nightly. drupal php developer and registered dietitian are consulted. Counseled patient today on the importance of maintaining glucose control (3) HTN (hypertension) Is this a current diagnosis for this admission?: No Plan: Reports history of hypertension. Hypertensive today; 150/87, though possibly related to pain. Continue lisinopril 5 mg daily IV hydralazine as needed for blood pressure control. Continue to monitor blood pressures and adjust medications as required. (4) History of seizure Is this a current diagnosis for this admission?: No Plan: Patient endorses history of seizure however does not remember when he had a seizure and he is not taking any seizure meds. Continue seizure precaution. PRN benzos. Outpatient PCP/neurology follow-up. - Time Time Spent with patient: 15-24 minutes Medications reviewed and adjusted accordingly: Yes Anticipated discharge: Home Within: Other - When medically stable - Inpatient Certification Based on my medical assessment, after consideration of the patient's comorbidities, presenting symptoms, or acuity I expect that the services needed warrant INPATIENT care.: Yes I certify that my determination is in accordance with my understanding of Medicare's requirements for reasonable and necessary INPATIENT services [42 CFR 412.3e].: Yes Medical Necessity: Need for IV Antibiotics, Risk of Complication if Not Cared For in Hospital
[2018-11-10] MEDS: SENNOSIDES/DOCUSATE 8.6-50 MG 1 EACH TABLET PO SCH (17:36)
[2018-11-10] MEDS: INSULIN GLARGINE,HUM.REC.ANLOG 1,000 UNIT/10 ML VIAL SUBCUT SCH (22:02)
[2018-11-11] MEDS: MORPHINE SULFATE 10 MG/ML INJ IV PRN ×5 (01:47→18:39)
[2018-11-11] MEDS: NORMAL SALINE 1000 ML 1,000 ML IV PRN ×2 (03:55→21:57)
[2018-11-11 05:10] LABS: ABSOLUTE BASOPHILS # (AUTO) 0.1 10^3/uL (0.0-0.2); ABSOLUTE EOSINOPHILS # (AUTO) 0.2 10^3/uL (0.0-0.6); ABSOLUTE LYMPHOCYTES (AUTO) 1.6 10^3/uL (0.5-4.7); ABSOLUTE MONOCYTES (AUTO) 0.6 10^3/uL (0.1-1.4); ABSOLUTE NEUT (AUTO) 3.6 10^3/uL (1.7-8.2); HEMATOCRIT 29.9 % (37.9-51.0); HEMOGLOBIN 10.1 g/dL (13.5-17.0); MEAN CORPUSCULAR HEMOGLOBIN 27.4 pg (27.0-33.4); MEAN CORPUSCULAR HGB CONC 33.7 g/dL (32.0-36.0); MEAN CORPUSCULAR VOLUME 81 fl (80-97); MONOCYTES % (AUTO) 10.2 % (3-13); PLATELET COUNT 438 10^3/uL (150-450); RED BLOOD COUNT 3.68 10^6/uL (4.35-5.55); RED CELL DISTRIBUTION WIDTH 13.6 % (11.5-14.0); SEGMENTED NEUTROPHILS % (AUTO) 58.8 % (42-78); TOTAL CELLS COUNTED % (AUTO) 100 %; WHITE BLOOD COUNT 6.2 10^3/uL (4.0-10.5)
[2018-11-11] MEDS: PIPERACILLIN SODIUM/TAZOBACTAM 4.5 GM in NORMAL SALINE 100 ML IV SCH ×3 (05:19→17:43)
[2018-11-11] MEDS: PANTOPRAZOLE SODIUM 40 MG TABLET.DR PO SCH ×2 (05:19→16:46)
[2018-11-11 05:33] LABS: ALANINE AMINOTRANSFERASE 22 U/L (21-72); ALBUMIN 2.6 g/dL (3.5-5.0); ALKALINE PHOSPHATASE 106 U/L (38-126); ANION GAP 5 (5-19); ASPARTATE AMINO TRANSFERASE 26 U/L (17-59); BILIRUBIN,DIRECT 0.2 mg/dL (0.0-0.4); BILIRUBIN,TOTAL 0.2 mg/dL (0.2-1.3); BLOOD UREA NITROGEN 9 mg/dL (7-20); CALCIUM 8.6 mg/dL (8.4-10.2); CARBON DIOXIDE 30 mmol/L (22-30); CHLORIDE 103 mmol/L (98-107); GLUCOSE 114 mg/dL (75-110); SODIUM 137.5 mmol/L (137-145); TOTAL PROTEIN 5.4 g/dL (6.3-8.2)
[2018-11-11 05:34] LABS: PHOSPHORUS 4.7 mg/dL (2.5-4.5)
[2018-11-11] MEDS: VANCOMYCIN HCL 750 MG in DEXTROSE 5%-WATER 250 ML IV SCH ×3 (06:25→21:57)
[2018-11-11] MEDS: INSULIN LISPRO 100 UNIT/ML 3 ML VIAL SUBCUT SCH ×4 (07:47→21:58)
[2018-11-11] MEDS: SENNOSIDES/DOCUSATE 8.6-50 MG 1 EACH TABLET PO SCH ×2 (09:13→17:37)
[2018-11-11] MEDS: POLYETHYLENE GLYCOL 3350 POWDER 17 GM/1 PACKET PO SCH (09:13)
[2018-11-11] MEDS: ENOXAPARIN SODIUM INJ 40 MG/0.4 ML DISP.SYRIN SUBCUT SCH (09:13)
[2018-11-11] MEDS: LISINOPRIL 5 MG TABLET PO SCH ×2 (09:16→17:41)
[2018-11-11] MEDS: IPRATROPIUM/ALBUTEROL 0.5-2.5 MG/3 ML AMPUL NEB PRN (09:36)
--- NOTE | 2018-11-11 11:31 | PDOC PROGRESS REPORT ---
Subjective Progress Note for:: 11/11/18 Reason For Visit: DIABETIC FOOT,DIABETES Physical Exam Vital Signs: Temp Pulse Resp BP Pulse Ox 97.8 F 84 16 158/94 H 98 11/11/18 08:18 11/11/18 09:38 11/11/18 09:38 11/11/18 08:18 11/11/18 09:38 Intake & Output 11/10/18 11/11/18 11/12/18 06:59 06:59 06:59 Intake Total 3660 4960 250 Output Total 2850 3200 Balance 810 1760 250 Weight 59.5 kg 60.2 kg Results Laboratory Results: 11/11/18 04:35 11/11/18 04:35 11/11/18 11/11/18 11/11/18 04:35 04:35 04:35 WBC 6.2 RBC 3.68 L Hgb 10.1 L Hct 29.9 L MCV 81 MCH 27.4 MCHC 33.7 RDW 13.6 Plt Count 438 Seg Neutrophils % 58.8 Lymphocytes % 26.0 Monocytes % 10.2 Eosinophils % 4.0 Basophils % 1.0 Absolute Neutrophils 3.6 Absolute Lymphocytes 1.6 Absolute Monocytes 0.6 Absolute Eosinophils 0.2 Absolute Basophils 0.1 Sodium 137.5 Potassium 4.0 Chloride 103 Carbon Dioxide 30 Anion Gap 5 BUN 9 Creatinine 0.56 Est GFR ( Amer) > 60 Est GFR (Non-Af Amer) > 60 Glucose 114 H Calcium 8.6 Phosphorus 4.7 H Magnesium 1.9 Total Bilirubin 0.2 AST 26 ALT 22 Alkaline Phosphatase 106 Total Protein 5.4 L Albumin 2.6 L 11/08/18 20:35 Foot - Left Gram Stain - Final 11/08/18 16:34 Creatine Kinase 36 L Impressions: Foot X-Ray 11/08/18 13:39 IMPRESSION: No evidence of osteomyelitis. Assessment & Plan - Diagnosis (1) Diabetic infection of left foot Is this a current diagnosis for this admission?: Yes - Plan Summary Plan Summary: This is a 43-year-old male status post amputation of the left fourth and fifth toes. The patient reports walking on his foot last night and causing bleeding. Patient has redness over the dorsum of the foot this morning. Is difficult to determine the etiology of this. It could be related to infection or potentially hematoma from trauma last night. I have recommended that the patient elevate the foot. I have also offered him opening of the sutures with irrigation of the foot and placement of damp to dry dressings. The patient has declined at this time. I will make the patient n.p.o. after midnight. The wound will be reassessed tomorrow. If he requires opening and irrigation of the wound, the patient is more amenable to this intervention with anesthesia. I will continue to follow this patient closely with you.
[2018-11-11] MEDS: KETOROLAC TROMETHAMINE INJ/PF 30 MG/1 ML SDV IV SCH ×2 (13:17→21:57)
--- NOTE | 2018-11-11 14:11 | RADIOLOGY REPORT (SQ) ---
EXAM DESCRIPTION: ELBOW LEFT OVER 2 VIEWS COMPLETED DATE/TIME: 11/11/2018 1:55 pm REASON FOR STUDY: L elbow pain COMPARISON: None. NUMBER OF VIEWS: Four views. TECHNIQUE: AP, lateral, and both oblique radiographic images acquired of the left elbow. LIMITATIONS: None. FINDINGS: MINERALIZATION: Normal. BONES: No acute fracture or dislocation. No worrisome bone lesions. JOINT: There appears to be a small joint effusion. SOFT TISSUES: No soft tissue swelling. No foreign body. OTHER: No other significant finding. IMPRESSION: Small joint effusion. No acute osseous finding. TECHNICAL DOCUMENTATION: JOB ID: [id number] [employer]- All Rights Reserved Reading location - IP/workstation name: [email or web address]
--- NOTE | 2018-11-11 16:36 | PDOC PROGRESS REPORT ---
Subjective Progress Note for:: 11/11/18 Subjective:: MURALI MILLAN is a 43 year old male past medical history of diabetes, seizure disorder currently not any medication, does not remember the last time he had a seizure, asthma, tobacco abuse, hypertension who was admitted 11/08/2018 for wet gangrene secondary to diabetic foot wound. He is now postop 4th and 5th left toe amputations. The patient was seen this morning on rounds. He is resting comfortably in bed on room air. Patient endorses throbbing pain to the left foot. Patient states he got up to the bathroom last night and ambulated, putting weight on the left foot (against surgery's NWB orders). Patient has since been evaluated by Dr. Briceno, surgeon, who believes the patient may have developed a subcutaneous hematoma. We will continue to evaluate, patient may require wound washout tomorrow. During exam, patient states he suffered an injury to his left elbow and it was never evaluated. Patient has full range of motion of his elbow but states he experiences pain with ROM. Plan for x-ray today. Still waiting for cultures and sensitivities from left foot wound culture. Patient will remain at [facility] to receive IV antibiotics and possible washout tomorrow. Reason For Visit: DIABETIC FOOT,DIABETES Physical Exam Vital Signs: Temp Pulse Resp BP Pulse Ox 98.0 F 90 19 168/98 H 100 11/11/18 11:46 11/11/18 14:00 11/11/18 11:46 11/11/18 11:46 11/11/18 11:46 Intake & Output 11/10/18 11/11/18 11/12/18 06:59 06:59 06:59 Intake Total 3660 4960 960 Output Total 2850 3200 2450 Balance 810 1760 -1490 Weight 59.5 kg 60.2 kg General appearance: PRESENT: no acute distress, thin Head exam: PRESENT: atraumatic, normocephalic Eye exam: PRESENT: conjunctiva pink, EOMI, PERRLA. ABSENT: scleral icterus Ear exam: PRESENT: normal external ear exam Mouth exam: PRESENT: moist, tongue midline Teeth exam: PRESENT: poor dentation Neck exam: PRESENT: full ROM. ABSENT: carotid bruit, JVD, lymphadenopathy, thyromegaly Respiratory exam: PRESENT: clear to auscultation mila, symmetrical, unlabored. ABSENT: rales, rhonchi, wheezes Cardiovascular exam: PRESENT: RRR. ABSENT: diastolic murmur, rubs, systolic murmur Pulses: PRESENT: normal radial pulses, normal dorsalis pedis pul Vascular exam: PRESENT: normal capillary refill GI/Abdominal exam: PRESENT: normal bowel sounds, soft. ABSENT: distended, guarding, mass, organolmegaly, rebound, tenderness Rectal exam: PRESENT: deferred Extremities exam: PRESENT: full ROM, tenderness - L FOOT. ABSENT: calf tenderness, clubbing, pedal edema Musculoskeletal exam: PRESENT: ambulatory, deformity - L 4 & 5TH TOE AMPUTATION, full ROM Neurological exam: PRESENT: alert, awake, oriented to person, oriented to place, oriented to time, oriented to situation Psychiatric exam: PRESENT: appropriate affect, normal mood Skin exam: PRESENT: dry, intact, warm. ABSENT: cyanosis, rash Results Laboratory Results: 11/11/18 04:35 11/11/18 04:35 11/11/18 11/11/18 11/11/18 04:35 04:35 04:35 WBC 6.2 RBC 3.68 L Hgb 10.1 L Hct 29.9 L MCV 81 MCH 27.4 MCHC 33.7 RDW 13.6 Plt Count 438 Seg Neutrophils % 58.8 Lymphocytes % 26.0 Monocytes % 10.2 Eosinophils % 4.0 Basophils % 1.0 Absolute Neutrophils 3.6 Absolute Lymphocytes 1.6 Absolute Monocytes 0.6 Absolute Eosinophils 0.2 Absolute Basophils 0.1 Sodium 137.5 Potassium 4.0 Chloride 103 Carbon Dioxide 30 Anion Gap 5 BUN 9 Creatinine 0.56 Est GFR ( Amer) > 60 Est GFR (Non-Af Amer) > 60 Glucose 114 H Calcium 8.6 Phosphorus 4.7 H Magnesium 1.9 Total Bilirubin 0.2 AST 26 ALT 22 Alkaline Phosphatase 106 Total Protein 5.4 L Albumin 2.6 L 11/08/18 20:35 Foot - Left Gram Stain - Final 11/08/18 16:34 Creatine Kinase 36 L Impressions: Foot X-Ray 11/08/18 13:39 IMPRESSION: No evidence of osteomyelitis. Elbow X-Ray 11/11/18 11:18 IMPRESSION: Small joint effusion. No acute osseous finding. Status: Imported from PACS Assessment and Plan - Diagnosis (1) Diabetic infection of left foot Is this a current diagnosis for this admission?: Yes Plan: Now postop left 4th and 5th toe amputations. Blood cultures negative at 72 hours Wound culture shows group B beta strep, and gram-positive cocci in clusters - awaiting final cultures and sensitivities Lower extremity ultrasound with arterial Doppler is negative Surgery has been consulted; appreciate their assistance. Wound care per surgery's expertise. Continue IV vancomycin and Zosyn. (2) Diabetes mellitus type 2 in nonobese Is this a current diagnosis for this admission?: No Plan: A1c 12.2%. Consistent carb diet. Accu-Cheks AC and at bedtime with Humalog for sliding scale coverage. Lantus nightly. fiscal specialist and registered dietitian are consulted. Counseled patient today on the importance of maintaining glucose control (3) HTN (hypertension) Is this a current diagnosis for this admission?: No Plan: Reports history of hypertension. Hypertensive today; SBP 160s Increased lisinopril from 5 mg daily to 10 mg twice daily IV hydralazine as needed for blood pressure control. Continue to monitor blood pressures and adjust medications as required. (4) History of seizure Is this a current diagnosis for this admission?: No Plan: Patient endorses history of seizure however does not remember when he had a seizure and he is not taking any seizure meds. Continue seizure precaution. PRN benzos. Outpatient PCP/neurology follow-up. - Time Time Spent with patient: 15-24 minutes Medications reviewed and adjusted accordingly: Yes Anticipated discharge: Home Within: within 48 hours, within 72 hours - Inpatient Certification Based on my medical assessment, after consideration of the patient's comorbidities, presenting symptoms, or acuity I expect that the services needed warrant INPATIENT care.: Yes I certify that my determination is in accordance with my understanding of Medicare's requirements for reasonable and necessary INPATIENT services [42 CFR 412.3e].: Yes Medical Necessity: Need for IV Antibiotics, Need for Surgery, Risk of Complication if Not Cared For in Hospital
[2018-11-11] MEDS: OXYCODONE-ACETAMINOPHEN 5-325 MG TABLET PO PRN ×2 (16:45→21:58)
[2018-11-11] MEDS: INSULIN GLARGINE,HUM.REC.ANLOG 1,000 UNIT/10 ML VIAL SUBCUT SCH (21:58)
[2018-11-12] MEDS: PIPERACILLIN SODIUM/TAZOBACTAM 4.5 GM in NORMAL SALINE 100 ML IV SCH ×2 (00:39→05:54)
[2018-11-12] MEDS: MORPHINE SULFATE 10 MG/ML INJ IV PRN ×4 (04:33→21:26)
[2018-11-12] MEDS: PANTOPRAZOLE SODIUM 40 MG TABLET.DR PO SCH ×2 (05:48→17:35)
[2018-11-12] MEDS: KETOROLAC TROMETHAMINE INJ/PF 30 MG/1 ML SDV IV SCH ×3 (05:54→21:26)
[2018-11-12] MEDS: VANCOMYCIN HCL 750 MG in DEXTROSE 5%-WATER 250 ML IV SCH ×3 (06:30→21:25)
[2018-11-12] MEDS: SENNOSIDES/DOCUSATE 8.6-50 MG 1 EACH TABLET PO SCH ×2 (09:11→17:37)
[2018-11-12] MEDS: POLYETHYLENE GLYCOL 3350 POWDER 17 GM/1 PACKET PO SCH (09:12)
[2018-11-12] MEDS: ENOXAPARIN SODIUM INJ 40 MG/0.4 ML DISP.SYRIN SUBCUT SCH (09:14)
[2018-11-12] MEDS: LISINOPRIL 5 MG TABLET PO SCH ×2 (09:15→17:35)
[2018-11-12] MEDS: INSULIN LISPRO 100 UNIT/ML 3 ML VIAL SUBCUT SCH ×4 (09:28→21:26)
[2018-11-12] MEDS: OXYCODONE-ACETAMINOPHEN 5-325 MG TABLET PO PRN ×2 (10:17→17:34)
--- NOTE | 2018-11-12 10:54 | PDOC PROGRESS REPORT ---
Subjective Progress Note for:: 11/12/18 Subjective:: Patient did some dancing in his room last night pain and left foot. There was no fever overnight. Reason For Visit: DIABETIC FOOT,DIABETES Physical Exam Vital Signs: Temp Pulse Resp BP Pulse Ox 98.0 F 84 16 162/100 H 97 11/12/18 08:11 11/12/18 08:51 11/12/18 08:51 11/12/18 08:11 11/12/18 08:51 Intake & Output 11/11/18 11/12/18 11/13/18 06:59 06:59 06:59 Intake Total 4960 3820 Output Total 3200 2950 Balance 1760 870 Weight 60.2 kg 58.7 kg General appearance: PRESENT: no acute distress Musculoskeletal exam: PRESENT: other - Left dressing removed from left foot. All sutures intact. Edema, but no foul smell, or cellulitic changes. There is no active drainage. I could not express any blood from the wound. Results Laboratory Results: 11/11/18 04:35 11/11/18 04:35 11/08/18 20:35 Foot - Left Gram Stain - Final 11/08/18 20:35 Foot - Left Wound Culture - Final Mrsa (Meth Resis Staph Aureus) Group B Beta Streptococcus No Anaerobic Organisms 11/08/18 16:34 Creatine Kinase 36 L Impressions: Foot X-Ray 11/08/18 13:39 IMPRESSION: No evidence of osteomyelitis. Elbow X-Ray 11/11/18 11:18 IMPRESSION: Small joint effusion. No acute osseous finding. Assessment & Plan - Diagnosis (1) Diabetic infection of left foot Is this a current diagnosis for this admission?: Yes Plan: Impression: Postoperative day 4 left fourth and fifth toe amputations with closu re, no evidence of assisting sepsis based on clinical examination, absence of fever, and absence of leukocytosis. No indication for opening up wound today. Recommendations: 1. Continue current therapy 2. We will reinspect wound tomorrow. 3. I instructed the patient to stop dancing and getting up on his foot. He may be up with crutches nonweightbearing.
--- NOTE | 2018-11-12 15:34 | PDOC PROGRESS REPORT ---
Subjective Progress Note for:: 11/12/18 Subjective:: MURALI MILLAN is a 43 year old male past medical history of diabetes, seizure disorder currently not any medication, does not remember the last time he had a seizure, asthma, tobacco abuse, hypertension who was admitted 11/08/2018 for wet gangrene secondary to diabetic foot wound. He is now postop 4th and 5th left toe amputations. The patient was seen this morning on rounds. He is ambulating with PT/OT using his crutches. Patient states he got up to the bathroom the other night and was dancing in his room last night, putting weight on the left foot (against surgery's NWB orders). Patient instructed by me and surgeon to adhere to NWB instructions. Patient growing MRSA in his foot wound. Discontinued Zosyn, will continue vacomycin, additionally consulted [facility] infectious disease regarding appropriate treatment. [facility] to receive IV [facility]. Reason For Visit: DIABETIC FOOT,DIABETES Physical Exam Vital Signs: Temp Pulse Resp BP Pulse Ox 98.0 F 84 16 162/100 H 97 11/12/18 08:11 11/12/18 08:51 11/12/18 08:51 11/12/18 08:11 11/12/18 08:51 Intake & Output 11/11/18 11/12/18 11/13/18 06:59 06:59 06:59 Intake Total 4960 3820 Output Total 3200 2950 Balance 1760 870 Weight 60.2 kg 58.7 kg General appearance: PRESENT: no acute distress, thin Head exam: PRESENT: atraumatic, normocephalic Eye exam: PRESENT: conjunctiva pink, EOMI, PERRLA. ABSENT: scleral icterus Ear exam: PRESENT: normal external ear exam Mouth exam: PRESENT: moist, tongue midline Neck exam: ABSENT: carotid bruit, JVD, lymphadenopathy, thyromegaly Respiratory exam: PRESENT: clear to auscultation mila, symmetrical, unlabored. ABSENT: rales, rhonchi, wheezes Cardiovascular exam: PRESENT: RRR. ABSENT: diastolic murmur, rubs, systolic murmur Pulses: PRESENT: normal radial pulses, normal dorsalis pedis pul Vascular exam: PRESENT: normal capillary refill GI/Abdominal exam: PRESENT: normal bowel sounds, soft. ABSENT: distended, guarding, mass, organolmegaly, rebound, tenderness Rectal exam: PRESENT: deferred Extremities exam: PRESENT: full ROM. ABSENT: calf tenderness, clubbing, pedal edema Musculoskeletal exam: PRESENT: ambulatory - NWB L foot. Able to ambulate with crutches., full ROM Neurological exam: PRESENT: alert, awake, oriented to person, oriented to place, oriented to time, oriented to situation Psychiatric exam: PRESENT: appropriate affect, normal mood Skin exam: PRESENT: dry, intact, warm. ABSENT: cyanosis, rash Results Laboratory Results: 11/11/18 04:35 11/11/18 04:35 11/08/18 20:35 Foot - Left Gram Stain - Final 11/08/18 20:35 Foot - Left Wound Culture - Final Mrsa (Meth Resis Staph Aureus) Group B Beta Streptococcus No Anaerobic Organisms 11/08/18 16:34 Creatine Kinase 36 L Impressions: Foot X-Ray 11/08/18 13:39 IMPRESSION: No evidence of osteomyelitis. Elbow X-Ray 11/11/18 11:18 IMPRESSION: Small joint effusion. No acute osseous finding. Status: Imported from PACS Assessment and Plan - Diagnosis (1) Diabetic infection of left foot Is this a current diagnosis for this admission?: Yes Plan: Now postop left 4th and 5th toe amputations. Blood cultures negative at 72 hours Wound culture shows (+) MRSA Lower extremity ultrasound with arterial Doppler is negative Surgery has been consulted; appreciate their assistance. Wound care per surgery's expertise. Continue IV vancomycin, discontinue IV zosyn Consulted [facility] regarding duration of antibiotic treatment (2) Diabetes mellitus type 2 in nonobese Is this a current diagnosis for this admission?: No Plan: A1c 12.2%. Consistent carb diet. Accu-Cheks AC and at bedtime with Humalog for sliding scale coverage. Lantus nightly. community health educator and registered dietitian are consulted. Counseled patient today on the importance of maintaining glucose control (3) HTN (hypertension) Is this a current diagnosis for this admission?: No Plan: Reports history of hypertension. Hypertensive today; SBP 155-163s Yesterday, increased lisinopril from 5 mg -->10 mg twice daily Will add Norvasc today IV hydralazine as needed for blood pressure control. Continue to monitor blood pressures and adjust medications as required. (4) History of seizure Is this a current diagnosis for this admission?: No Plan: Patient endorses history of seizure however does not remember when he had a seizure and he is not taking any seizure meds. Continue seizure precaution. PRN benzodiazepines Outpatient PCP/neurology follow-up. - Time Time Spent with patient: 15-24 minutes Medications reviewed and adjusted accordingly: Yes Anticipated discharge: Home Within: within 48 hours, within 36 hours - Inpatient Certification Based on my medical assessment, after consideration of the patient's comor bidities, presenting symptoms, or acuity I expect that the services needed warrant INPATIENT care.: Yes I certify that my determination is in accordance with my understanding of Medicare's requirements for reasonable and necessary INPATIENT services [42 CFR 412.3e].: Yes Medical Necessity: Need for IV Antibiotics, Risk of Complication if Not Cared For in Hospital
[2018-11-12] MEDS: AMLODIPINE BESYLATE 5 MG TABLET PO SCH (16:26)
[2018-11-12] MEDS: NORMAL SALINE 1000 ML 1,000 ML IV PRN (16:29)
[2018-11-12] MEDS: INSULIN GLARGINE,HUM.REC.ANLOG 1,000 UNIT/10 ML VIAL SUBCUT SCH (21:27)
--- NOTE | 2018-11-12 21:45 | Progress Note ---
Provider Note Provider Note: ID Consult Note Asked to review patient's chart. Pt not seen or examined. Pt is a 43 year old man with PMH of DM, asthma, tobacco abuse, HTN who is admitted with a diabetic foot infection. He noticed 3 days ago a blister forming on the dorsal aspect of his left lateral foot, which subsequently popped, and was associated with progressively worsening pain, erythema and swelling. The left foot was noted to have pus draining from an ulcer on the dorsal aspect with cellulitis extending up to the mid forefoot. ESR was 101, and CRP was 21. The patient was taken to the OR on 11/08 and had ray amputations of the 4th and 5th digits. The purulent drainage was cultured and grew Group B Strep and MRSA. Blood cultures are negative. Focal acute osteomyelitis was seen on the pathology of the submitted specimens. Impression/Recommendations - If all of the osteomyelitic bone was fully resected at surgery, then the patient should only need a duration of treatment sufficient for any residual soft tissue infection (5-14 days in total should suffice), depending on response of the residual cellulitis. - However, if the surgeon is suspicious that there is residual bony involvement, it would be reasonable to continue IV vancomycin for 6 weeks, dosed with the assistance of a clinical pharmacist, to achieve goal troughs of 15-20, with weekly lab monitoring including vancomycin troughs, CBC, and CMP. Patients with positive resection margins have a higher risk for needing further surgery. The pathology report notes focal acute osteomyelitis, and if this specimen is from the proximal margin, it is concerning that there may be increased risk of failure. It would be worth confirming if this is the case and what the impression was at surgery, and then pursuing prolonged IV antibiotic therapy with vancomycin if residual bony involvement is suspected. Marcelino Gordon MD [facility] Infectious Diseases pager [phone]
[2018-11-13] MEDS: OXYCODONE-ACETAMINOPHEN 5-325 MG TABLET PO PRN ×4 (02:16→22:05)
[2018-11-13] MEDS: KETOROLAC TROMETHAMINE INJ/PF 30 MG/1 ML SDV IV SCH ×2 (05:36→13:21)
[2018-11-13] MEDS: VANCOMYCIN HCL 750 MG in DEXTROSE 5%-WATER 250 ML IV SCH ×3 (05:36→21:03)
[2018-11-13] MEDS: PANTOPRAZOLE SODIUM 40 MG TABLET.DR PO SCH ×2 (05:37→19:04)
[2018-11-13] MEDS: MORPHINE SULFATE 10 MG/ML INJ IV PRN ×3 (05:37→19:03)
[2018-11-13 06:22] LABS: HEMATOCRIT 32.6 % (37.9-51.0); HEMOGLOBIN 10.9 g/dL (13.5-17.0); MEAN CORPUSCULAR HGB CONC 33.5 g/dL (32.0-36.0); MEAN CORPUSCULAR VOLUME 81 fl (80-97); PLATELET COUNT 533 10^3/uL (150-450); RED BLOOD COUNT 4.05 10^6/uL (4.35-5.55); WHITE BLOOD COUNT 6.7 10^3/uL (4.0-10.5)
[2018-11-13 06:53] LABS: ALANINE AMINOTRANSFERASE 48 U/L (21-72); ALBUMIN 2.9 g/dL (3.5-5.0); ALKALINE PHOSPHATASE 142 U/L (38-126); ANION GAP 6 (5-19); ASPARTATE AMINO TRANSFERASE 55 U/L (17-59); BILIRUBIN,DIRECT 0.3 mg/dL (0.0-0.4); BILIRUBIN,TOTAL 0.3 mg/dL (0.2-1.3); BLOOD UREA NITROGEN 14 mg/dL (7-20); CALCIUM 9.1 mg/dL (8.4-10.2); CARBON DIOXIDE 29 mmol/L (22-30); CHLORIDE 99 mmol/L (98-107); GLUCOSE 210 mg/dL (75-110); POTASSIUM 4.7 mmol/L (3.6-5.0); SODIUM 133.9 mmol/L (137-145); TOTAL PROTEIN 5.9 g/dL (6.3-8.2)
[2018-11-13] MEDS: INSULIN LISPRO 100 UNIT/ML 3 ML VIAL SUBCUT SCH ×4 (07:43→22:01)
[2018-11-13] MEDS: POLYETHYLENE GLYCOL 3350 POWDER 17 GM/1 PACKET PO SCH (09:57)
[2018-11-13] MEDS: SENNOSIDES/DOCUSATE 8.6-50 MG 1 EACH TABLET PO SCH ×2 (09:58→17:11)
[2018-11-13] MEDS: LISINOPRIL 5 MG TABLET PO SCH ×2 (10:00→17:15)
[2018-11-13] MEDS: ENOXAPARIN SODIUM INJ 40 MG/0.4 ML DISP.SYRIN SUBCUT SCH (10:00)
[2018-11-13] MEDS: AMLODIPINE BESYLATE 5 MG TABLET PO SCH (10:00)
--- NOTE | 2018-11-13 13:26 | PDOC PROGRESS REPORT ---
Subjective Progress Note for:: 11/13/18 Subjective:: feels better, min left foot pain Reason For Visit: DIABETIC FOOT,DIABETES Physical Exam Vital Signs: Temp Pulse Resp BP Pulse Ox 98.1 F 78 17 149/85 H 99 11/13/18 11:23 11/13/18 11:23 11/13/18 06:44 11/13/18 11:23 11/13/18 11:23 Intake & Output 11/12/18 11/13/18 11/14/18 06:59 06:59 06:59 Intake Total 3820 3060 240 Output Total 2950 770 Balance 870 2290 240 Weight 58.7 kg 59.1 kg General appearance: PRESENT: no acute distress Head exam: PRESENT: normocephalic Eye exam: PRESENT: EOMI Ear exam: PRESENT: normal external ear exam Mouth exam: PRESENT: moist Teeth exam: PRESENT: poor dentation Neck exam: PRESENT: full ROM Respiratory exam: PRESENT: clear to auscultation mila Cardiovascular exam: PRESENT: RRR Pulses: PRESENT: +2 pedal pulses bilateral GI/Abdominal exam: PRESENT: soft Rectal exam: PRESENT: deferred Extremities exam: PRESENT: full ROM, other - left forefoot with less swelling and cellulitis wound bed clean, less tender. Musculoskeletal exam: PRESENT: full ROM Psychiatric exam: PRESENT: appropriate affect Skin exam: PRESENT: dry Results Laboratory Results: 11/13/18 05:21 11/13/18 05:21 11/13/18 11/13/18 05:21 05:21 WBC 6.7 RBC 4.05 L Hgb 10.9 L Hct 32.6 L MCV 81 MCH 27.0 MCHC 33.5 RDW 14.0 Plt Count 533 H Sodium 133.9 L Potassium 4.7 Chloride 99 Carbon Dioxide 29 Anion Gap 6 BUN 14 Creatinine 0.50 L Est GFR ( Amer) > 60 Est GFR (Non-Af Amer) > 60 Glucose 210 H Calcium 9.1 Total Bilirubin 0.3 AST 55 ALT 48 Alkaline Phosphatase 142 H Total Protein 5.9 L Albumin 2.9 L 11/08/18 16:34 Creatine Kinase 36 L Impressions: Foot X-Ray 11/08/18 13:39 IMPRESSION: No evidence of osteomyelitis. Elbow X-Ray 11/11/18 11:18 IMPRESSION: Small joint effusion. No acute osseous finding. Assessment & Plan - Plan Summary Plan Summary: s/p left 4th 5th toe amputation wound improved, less cellultis and swelling ok for dc home in am on po abx
--- NOTE | 2018-11-13 17:10 | PDOC PROGRESS REPORT ---
Subjective Progress Note for:: 11/13/18 Subjective:: MURALI MILLAN is a 43 year old male past medical history of diabetes, seizure disorder currently not any medication, does not remember the last time he had a seizure, asthma, tobacco abuse, hypertension who was admitted 11/08/2018 for wet gangrene secondary to diabetic foot wound. He is now postop 4th and 5th left toe amputations. The patient was seen this morning on rounds. He is resting comfortably in bed on room air. Discussed patient's case with Dr. Zayas, who feels that the patient will be ready for discharge tomorrow. Patient growing MRSA in his foot wound. Will continue vacomycin, and switch to PO Bactrim tomorrow. According to Dr. Gordon, infectious disease, the patient should only require oral antibiotics for 5-14 days. The patient is in [place], from out of state, here on a temporary contract for work. Attempting to contact the patient's employer to determine post-discharge living arrangements. Reason For Visit: DIABETIC FOOT,DIABETES Physical Exam Vital Signs: Temp Pulse Resp BP Pulse Ox 98.1 F 82 17 149/85 H 99 11/13/18 11:23 11/13/18 14:00 11/13/18 06:44 11/13/18 11:23 11/13/18 11:23 Intake & Output 11/12/18 11/13/18 11/14/18 06:59 06:59 06:59 Intake Total 3820 3060 730 Output Total 2950 770 Balance 870 2290 730 Weight 58.7 kg 59.1 kg General appearance: PRESENT: no acute distress, thin Head exam: PRESENT: atraumatic, normocephalic Eye exam: PRESENT: conjunctiva pink, EOMI, PERRLA. ABSENT: scleral icterus Ear exam: PRESENT: normal external ear exam Mouth exam: PRESENT: moist, tongue midline Neck exam: PRESENT: full ROM. ABSENT: carotid bruit, JVD, lymphadenopathy, thyromegaly Respiratory exam: PRESENT: clear to auscultation mila, symmetrical, unlabored. ABSENT: rales, rhonchi, wheezes Cardiovascular exam: PRESENT: RRR. ABSENT: diastolic murmur, rubs, systolic mur mur Pulses: PRESENT: normal radial pulses, normal dorsalis pedis pul Vascular exam: PRESENT: normal capillary refill GI/Abdominal exam: PRESENT: normal bowel sounds, soft. ABSENT: distended, guarding, mass, organolmegaly, rebound, tenderness Rectal exam: PRESENT: deferred Extremities exam: PRESENT: full ROM. ABSENT: calf tenderness, clubbing, pedal edema Musculoskeletal exam: PRESENT: deformity - L 4&5th toe amputation, full ROM Neurological exam: PRESENT: alert, awake, oriented to person, oriented to place, oriented to time, oriented to situation Psychiatric exam: PRESENT: appropriate affect, normal mood. ABSENT: homicidal ideation, suicidal ideation Skin exam: PRESENT: dry, intact, warm. ABSENT: cyanosis, rash Results Laboratory Results: 11/13/18 05:21 11/13/18 05:21 11/13/18 11/13/18 05:21 05:21 WBC 6.7 RBC 4.05 L Hgb 10.9 L Hct 32.6 L MCV 81 MCH 27.0 MCHC 33.5 RDW 14.0 Plt Count 533 H Sodium 133.9 L Potassium 4.7 Chloride 99 Carbon Dioxide 29 Anion Gap 6 BUN 14 Creatinine 0.50 L Est GFR ( Amer) > 60 Est GFR (Non-Af Amer) > 60 Glucose 210 H Calcium 9.1 Total Bilirubin 0.3 AST 55 ALT 48 Alkaline Phosphatase 142 H Total Protein 5.9 L Albumin 2.9 L 11/08/18 16:34 Blood Blood Culture - Final NO GROWTH IN 5 DAYS 11/08/18 14:50 Blood Blood Culture - Final NO GROWTH IN 5 DAYS 11/08/18 16:34 Creatine Kinase 36 L Impressions: Foot X-Ray 11/08/18 13:39 IMPRESSION: No evidence of osteomyelitis. Elbow X-Ray 11/11/18 11:18 IMPRESSION: Small joint effusion. No acute osseous finding. Status: Imported from PACS Assessment and Plan - Diagnosis (1) Diabetic infection of left foot Is this a current diagnosis for this admission?: Yes Plan: Now postop left 4th and 5th toe amputations. Blood cultures negative at 72 hours Wound culture shows (+) MRSA Lower extremity ultrasound with arterial Doppler is negative Surgery has been consulted; appreciate their assistance. Wound care per surgery's expertise. Continue IV vancomycin, will transition to p.o. Bactrim upon discharge Consulted ASTRID PRIDE, recommend 5-14 days of oral antibiotic treatment to treat the surrounding soft tissue cellulitis (2) Diabetes mellitus type 2 in nonobese Is this a current diagnosis for this admission?: No Plan: A1c 12.2%. Consistent carb diet. Accu-Cheks AC and at bedtime with Humalog for sliding scale coverage. Lantus nightly. senior health educator and registered dietitian are consulted. Counseled patient today on the importance of maintaining glucose control (3) HTN (hypertension) Is this a current diagnosis for this admission?: No Plan: Reports history of hypertension. Hypertensive today; SBP 155-163s Yesterday, increased lisinopril from 5 mg -->10 mg twice daily Will add Norvasc today IV hydralazine as needed for blood pressure control. Continue to monitor blood pressures and adjust medications as required. (4) History of seizure Is this a current diagnosis for this admission?: No Plan: Patient endorses history of seizure however does not remember when he had a seizure and he is not taking any seizure meds. Continue seizure precaution. PRN benzodiazepines Outpatient PCP/neurology follow-up. - Time Time Spent with patient: 15-24 minutes Medications reviewed and adjusted accordingly: Yes Anticipated discharge: Home - Inpatient Certification Based on my medical assessment, after consideration of the patient's comorbidities, presenting symptoms, or acuity I expect that the services needed warrant INPATIENT care.: Yes I certify that my determination is in accordance with my understanding of Medicare's requirements for reasonable and necessary INPATIENT services [42 CFR 412.3e].: Yes Medical Necessity: Need for IV Antibiotics, Risk of Complication if Not Cared For in Hospital
[2018-11-13] MEDS: INSULIN GLARGINE,HUM.REC.ANLOG 1,000 UNIT/10 ML VIAL SUBCUT SCH (22:02)
[2018-11-14] MEDS: MORPHINE SULFATE 10 MG/ML INJ IV PRN ×3 (00:09→20:49)
[2018-11-14] MEDS: VANCOMYCIN HCL 750 MG in DEXTROSE 5%-WATER 250 ML IV SCH ×3 (05:06→22:59)
[2018-11-14] MEDS: OXYCODONE-ACETAMINOPHEN 5-325 MG TABLET PO PRN ×5 (05:06→22:59)
[2018-11-14] MEDS: PANTOPRAZOLE SODIUM 40 MG TABLET.DR PO SCH ×2 (05:07→18:03)
[2018-11-14 06:21] LABS: HEMATOCRIT 32.9 % (37.9-51.0); HEMOGLOBIN 10.8 g/dL (13.5-17.0); MEAN CORPUSCULAR HEMOGLOBIN 26.8 pg (27.0-33.4); MEAN CORPUSCULAR HGB CONC 32.9 g/dL (32.0-36.0); MEAN CORPUSCULAR VOLUME 81 fl (80-97); PLATELET COUNT 518 10^3/uL (150-450); RED BLOOD COUNT 4.05 10^6/uL (4.35-5.55); RED CELL DISTRIBUTION WIDTH 14.2 % (11.5-14.0); WHITE BLOOD COUNT 7.1 10^3/uL (4.0-10.5)
[2018-11-14 06:40] LABS: ALANINE AMINOTRANSFERASE 45 U/L (21-72); ALKALINE PHOSPHATASE 127 U/L (38-126); ANION GAP 5 (5-19); ASPARTATE AMINO TRANSFERASE 47 U/L (17-59); BILIRUBIN,DIRECT 0.2 mg/dL (0.0-0.4); BILIRUBIN,TOTAL 0.3 mg/dL (0.2-1.3); BLOOD UREA NITROGEN 13 mg/dL (7-20); CALCIUM 9.3 mg/dL (8.4-10.2); CARBON DIOXIDE 31 mmol/L (22-30); CHLORIDE 97 mmol/L (98-107); GLUCOSE 234 mg/dL (75-110); POTASSIUM 4.7 mmol/L (3.6-5.0); SODIUM 133.4 mmol/L (137-145)
[2018-11-14] MEDS: INSULIN LISPRO 100 UNIT/ML 3 ML VIAL SUBCUT SCH ×4 (08:00→22:47)
[2018-11-14] MEDS: ENOXAPARIN SODIUM INJ 40 MG/0.4 ML DISP.SYRIN SUBCUT SCH (09:00)
[2018-11-14] MEDS: LISINOPRIL 5 MG TABLET PO SCH ×2 (09:00→18:03)
[2018-11-14] MEDS: AMLODIPINE BESYLATE 5 MG TABLET PO SCH (09:01)
[2018-11-14] MEDS: POLYETHYLENE GLYCOL 3350 POWDER 17 GM/1 PACKET PO SCH (09:02)
[2018-11-14] MEDS: SENNOSIDES/DOCUSATE 8.6-50 MG 1 EACH TABLET PO SCH ×2 (09:02→17:57)
--- NOTE | 2018-11-14 09:24 | PDOC PROGRESS REPORT ---
Subjective Progress Note for:: 11/14/18 Subjective:: Patient being more compliant with use of walker, sandal. Reason For Visit: DIABETIC FOOT,DIABETES Physical Exam Vital Signs: Temp Pulse Resp BP Pulse Ox 97.5 F 81 16 153/86 H 96 11/14/18 07:40 11/14/18 07:40 11/14/18 07:40 11/14/18 07:40 11/14/18 07:40 Intake & Output 11/13/18 11/14/18 11/15/18 06:59 06:59 06:59 Intake Total 3060 2530 250 Output Total 770 1000 Balance 2290 1530 250 Weight 59.1 kg 58.3 kg General appearance: PRESENT: no acute distress Extremities exam: PRESENT: other - Foot examined; sutures intact; foot wash with soapy water; no foul-smelling drainage. Minimal erythema over the metatarsals. Results Laboratory Results: 11/14/18 05:25 11/14/18 05:25 11/14/18 11/14/18 05:25 05:25 WBC 7.1 RBC 4.05 L Hgb 10.8 L Hct 32.9 L MCV 81 MCH 26.8 L MCHC 32.9 RDW 14.2 H Plt Count 518 H Sodium 133.4 L Potassium 4.7 Chloride 97 L Carbon Dioxide 31 H Anion Gap 5 BUN 13 Creatinine 0.46 L Est GFR ( Amer) > 60 Est GFR (Non-Af Amer) > 60 Glucose 234 H Calcium 9.3 Total Bilirubin 0.3 AST 47 ALT 45 Alkaline Phosphatase 127 H Total Protein 6.0 L Albumin 3.0 L 11/08/18 16:34 Blood Blood Culture - Final NO GROWTH IN 5 DAYS 11/08/18 14:50 Blood Blood Culture - Final NO GROWTH IN 5 DAYS 11/08/18 16:34 Creatine Kinase 36 L Impressions: Foot X-Ray 11/08/18 13:39 IMPRESSION: No evidence of osteomyelitis. Elbow X-Ray 11/11/18 11:18 IMPRESSION: Small joint effusion. No acute osseous finding. Assessment & Plan - Diagnosis (1) Diabetic infection of left foot Is this a current diagnosis for this admission?: Yes (2) Cellulitis of foot Is this a current diagnosis for this admission?: Yes Plan: Impression: Postoperative day 6 status post left fourth and fifth ray amputations, primary closure; MRSA infection source controlled; wound making satisfactory progress Recommendations: 1. Patient may be discharged and managed on outpatient basis with oral antibiotics 2. Nonweightbearing left foot; use sandal and walker. 3. If patient stays in [place], follow-up with [facility] in 1 week.
[2018-11-14] MEDS: CLOTRIMAZOLE 1% TOPICAL SOLN 10 ML TP SCH ×2 (14:37→22:48)
--- NOTE | 2018-11-14 16:31 | PDOC PROGRESS REPORT ---
Subjective Progress Note for:: 11/14/18 Subjective:: MURALI MILLAN is a 43 year old male past medical history of diabetes, seizure disorder currently not any medication, does not remember the last time he had a seizure, asthma, tobacco abuse, hypertension who was admitted 11/08/2018 for wet gangrene secondary to diabetic foot wound. He is now postop 4th and 5th left toe amputations. The patient was seen this morning on rounds. He is resting comfortably in bed on room air. Patient is ready for discharge but unfortunately he does not have a place to go. [place], [place] staying in [place] hotel [place] The patient lost his hotel room since he was in the hospital for nearly a week. His family all lives out of state. The patient does not have enough money to pay to stay at a hotel. Family is currently attempting to purchase a bus or a plane ticket in order to get the patient home. Discharge planning is well aware of the patient's situation. Appreciate their assistance with his post-discharge needs. Reason For Visit: DIABETIC FOOT,DIABETES Physical Exam Vital Signs: Temp Pulse Resp BP Pulse Ox 98.2 F 89 18 146/85 H 100 11/14/18 12:10 11/14/18 14:00 11/14/18 12:10 11/14/18 12:10 11/14/18 12:10 Intake & Output 11/13/18 11/14/18 11/15/18 06:59 06:59 06:59 Intake Total 3060 2530 845 Output Total 770 1000 1175 Balance 2290 1530 -330 Weight 59.1 kg 58.3 kg General appearance: PRESENT: no acute distress, thin Head exam: PRESENT: atraumatic, normocephalic Eye exam: PRESENT: conjunctiva pink, EOMI, PERRLA. ABSENT: scleral icterus Ear exam: PRESENT: normal external ear exam Mouth exam: PRESENT: moist, tongue midline Teeth exam: PRESENT: edentulous Neck exam: PRESENT: full ROM. ABSENT: carotid bruit, JVD, lymphadenopathy, thyromegaly Respiratory exam: PRESENT: clear to auscultation mila, symmetrical, unlabored. ABSENT: rales, rhonchi, wheezes Cardiovascular exam: PRESENT: RRR. ABSENT: diastolic murmur, rubs, systolic murmur Pulses: PRESENT: normal radial pulses, normal dorsalis pedis pul Vascular exam: PRESENT: normal capillary refill GI/Abdominal exam: PRESENT: normal bowel sounds, soft. ABSENT: distended, guarding, mass, organolmegaly, rebound, tenderness Rectal exam: PRESENT: deferred Extremities exam: PRESENT: full ROM. ABSENT: calf tenderness, clubbing, pedal edema Neurological exam: PRESENT: alert, awake, oriented to person, oriented to place, oriented to time, oriented to situation Psychiatric exam: PRESENT: appropriate affect, normal mood Skin exam: PRESENT: dry, intact, warm, other - left 4th and 5th toe amputated. ABSENT: cyanosis, rash Results Laboratory Results: 11/14/18 05:25 11/14/18 05:25 11/14/18 11/14/18 05:25 05:25 WBC 7.1 RBC 4.05 L Hgb 10.8 L Hct 32.9 L MCV 81 MCH 26.8 L MCHC 32.9 RDW 14.2 H Plt Count 518 H Sodium 133.4 L Potassium 4.7 Chloride 97 L Carbon Dioxide 31 H Anion Gap 5 BUN 13 Creatinine 0.46 L Est GFR ( Amer) > 60 Est GFR (Non-Af Amer) > 60 Glucose 234 H Calcium 9.3 Total Bilirubin 0.3 AST 47 ALT 45 Alkaline Phosphatase 127 H Total Protein 6.0 L Albumin 3.0 L 11/08/18 16:34 Blood Blood Culture - Final NO GROWTH IN 5 DAYS 11/08/18 14:50 Blood Blood Culture - Final NO GROWTH IN 5 DAYS 11/08/18 16:34 Creatine Kinase 36 L Impressions: Foot X-Ray 11/08/18 13:39 IMPRESSION: No evidence of osteomyelitis. Elbow X-Ray 11/11/18 11:18 IMPRESSION: Small joint effusion. No acute osseous finding. Status: Imported from PACS Assessment and Plan - Diagnosis (1) Diabetic infection of left foot Is this a current diagnosis for this admission?: Yes Plan: Now postop left 4th and 5th toe amputations. Blood cultures negative Wound culture shows (+) MRSA Lower extremity ultrasound with arterial Doppler is negative Surgery has been consulted; appreciate their assistance. Wound care per surgery's expertise. Continue IV vancomycin, will transition to p.o. Bactrim upon discharge Consulted ASTRID PRIDE, recommend 5-14 days of oral antibiotic treatment to treat the surrounding soft tissue cellulitis (2) Diabetes mellitus type 2 in nonobese Is this a current diagnosis for this admission?: No Plan: A1c 12.2%. Consistent carb diet. Accu-Cheks AC and at bedtime with Humalog for sliding scale coverage. Lantus nightly. nurse informatics educator and registered dietitian are consulted. Counseled patient today on the importance of maintaining glucose control (3) HTN (hypertension) Is this a current diagnosis for this admission?: No Plan: Reports history of hypertension. Hypertensive today; SBP 155-163s Yesterday, increased lisinopril from 5 mg -->10 mg twice daily Will add Norvasc today IV hydralazine as needed for blood pressure control. Continue to monitor blood pressures and adjust medications as required. (4) History of seizure Is this a current diagnosis for this admission?: No Plan: Patient endorses history of seizure however does not remember when he had a seizure and he is not taking any seizure meds. Continue seizure precaution. PRN benzodiazepines Outpatient PCP/neurology follow-up. - Time Time Spent with patient: 15-24 minutes Medications reviewed and adjusted accordingly: Yes Anticipated discharge: Home Within: within 24 hours, within 48 hours - Inpatient Certification Based on my medical assessment, after consideration of the patient's comorbidities, presenting symptoms, or acuity I expect that the services needed warrant INPATIENT care.: Yes I certify that my determination is in accordance with my understanding of Medicare's requirements for reasonable and necessary INPATIENT services [42 CFR 412.3e].: Yes Medical Necessity: Need for IV Antibiotics, Risk of Complication if Not Cared For in Hospital
[2018-11-14] MEDS: INSULIN GLARGINE,HUM.REC.ANLOG 1,000 UNIT/10 ML VIAL SUBCUT SCH (22:48)
[2018-11-15] MEDS: MORPHINE SULFATE 10 MG/ML INJ IV PRN ×2 (02:28→07:13)
[2018-11-15] MEDS: OXYCODONE-ACETAMINOPHEN 5-325 MG TABLET PO PRN ×3 (04:21→14:52)
[2018-11-15] MEDS: VANCOMYCIN HCL 750 MG in DEXTROSE 5%-WATER 250 ML IV SCH (05:11)
[2018-11-15] MEDS: PANTOPRAZOLE SODIUM 40 MG TABLET.DR PO SCH (05:11)
[2018-11-15] MEDS: CLOTRIMAZOLE 1% TOPICAL SOLN 10 ML TP SCH (05:12)
[2018-11-15 06:00] LABS: HEMATOCRIT 33.4 % (37.9-51.0); HEMOGLOBIN 11.2 g/dL (13.5-17.0); MEAN CORPUSCULAR HEMOGLOBIN 26.9 pg (27.0-33.4); MEAN CORPUSCULAR HGB CONC 33.4 g/dL (32.0-36.0); MEAN CORPUSCULAR VOLUME 81 fl (80-97); PLATELET COUNT 548 10^3/uL (150-450); RED BLOOD COUNT 4.15 10^6/uL (4.35-5.55); RED CELL DISTRIBUTION WIDTH 13.9 % (11.5-14.0)
[2018-11-15 06:23] LABS: ALANINE AMINOTRANSFERASE 46 U/L (21-72); ALBUMIN 3.2 g/dL (3.5-5.0); ALKALINE PHOSPHATASE 115 U/L (38-126); ANION GAP 7 (5-19); ASPARTATE AMINO TRANSFERASE 53 U/L (17-59); BILIRUBIN,DIRECT 0.2 mg/dL (0.0-0.4); BILIRUBIN,TOTAL 0.3 mg/dL (0.2-1.3); BLOOD UREA NITROGEN 16 mg/dL (7-20); CALCIUM 9.7 mg/dL (8.4-10.2); CARBON DIOXIDE 32 mmol/L (22-30); CHLORIDE 97 mmol/L (98-107); GLUCOSE 167 mg/dL (75-110); POTASSIUM 4.5 mmol/L (3.6-5.0); SODIUM 135.5 mmol/L (137-145); TOTAL PROTEIN 6.4 g/dL (6.3-8.2)
[2018-11-15 06:27] LABS: VANCOMYCIN,TROUGH 26.6 ug/mL (5.0-20.0)
[2018-11-15] MEDS: INSULIN LISPRO 100 UNIT/ML 3 ML VIAL SUBCUT SCH ×2 (08:10→12:39)
[2018-11-15] MEDS: SENNOSIDES/DOCUSATE 8.6-50 MG 1 EACH TABLET PO SCH (10:27)
[2018-11-15] MEDS: POLYETHYLENE GLYCOL 3350 POWDER 17 GM/1 PACKET PO SCH (10:27)
[2018-11-15] MEDS: AMLODIPINE BESYLATE 5 MG TABLET PO SCH (10:34)
[2018-11-15] MEDS: LISINOPRIL 5 MG TABLET PO SCH (10:34)
[2018-11-15] MEDS: ENOXAPARIN SODIUM INJ 40 MG/0.4 ML DISP.SYRIN SUBCUT SCH (10:35)
[2018-11-15] MEDS ORDERED: SULFAMETHOXAZOLE/TRIMETHOPRIM 800-160 MG TABLET PO SCH (11:00)
[2018-11-15 11:59] VITALS: BP 132/69
--- NOTE | 2018-11-19 08:33 | PDOC DISCHARGE SUMMARY ---
General - Admit/Disc Date/PCP Admission Date/Primary Care Provider: 11/08/18 17:24 Discharge Date: 11/15/18 - Discharge Diagnosis (1) Diabetic infection of left foot Is this a current diagnosis for this admission?: Yes (2) Diabetes mellitus type 2 in nonobese Is this a current diagnosis for this admission?: Yes (3) HTN (hypertension) Is this a current diagnosis for this admission?: Yes (4) History of seizure Is this a current diagnosis for this admission?: No - Additional Information Resuscitation Status: Full Code Discharge Diet: As Tolerated Discharge Activity: Balance Activity w/Rest, Slowly Increase Activity, Other Prescriptions: Amlodipine Besylate [Norvasc 5 mg Tablet] 5 mg PO DAILY #30 tablet Insulin Aspart [Novolog Flexpen] 0 unit SQ .SLIDING SCALE #10 insuln.pen Insulin Detemir [Levemir] 20 units SQ BID #5 vial Lisinopril [Prinivil 5 mg Tablet] 10 mg PO BID #60 tablet Sulfamethoxazole/Trimethoprim [Septra-Ds 800-160 mg Tablet] 1 tab PO BID #6 t ablet Home Medications: Amlodipine Besylate [Norvasc 5 mg Tablet] 5 mg PO DAILY #30 tablet 11/15/18 Insulin Aspart [Novolog Flexpen] 0 unit SQ .SLIDING SCALE #10 insuln.pen 11/15/18 Insulin Detemir [Levemir] 20 units SQ BID #5 vial 11/15/18 Lisinopril [Prinivil 5 mg Tablet] 10 mg PO BID #60 tablet 11/15/18 Sulfamethoxazole/Trimethoprim [Septra-Ds 800-160 mg Tablet] 1 tab PO BID #6 tablet 11/15/18 History of Present Illness History of Present Illness: MURALI MILLAN is a 43 year old male past medical history of diabetes, seizure disorder currently not any medication, does not remember the last time he had a seizure, asthma, tobacco abuse, hypertension, presented to ED complaining of left lower extremity pain. He says about to 3 days ago he started to notice a blister on the dorsal aspect of left fifth metatarsal which subsequently popped and he noticed progressively worsening pain, swelling, erythema. Pain is constant, sharp, radiating proximally. Denies any trauma to the foot, compliant with his diabetic medication, denies any fever, chills, nausea, vomiting, diarrhea, constipation or any urinary symptoms. Foot x-ray negative for osteomyelitis however elevated CRP/ESR. Surgery was consulted and plan is for possible surgery tonight. Hospital Course Hospital Course: MURALI MILLAN is a 43 year old male past medical history of diabetes, seizure disorder currently not any medication, does not remember the last time he had a seizure, asthma, tobacco abuse, hypertension who was admitted 11/08/2018 for wet gangrene secondary to diabetic foot wound. The patient required 4th and 5th left toe amputations. He was initially treated with vancomycin and zosyn for his diabetic foot wound, as these wounds tend to be polymicrobial. Eventually, the wound culture grew out MRSA. The patient was then treated with vancomycin only. The patient remained at [facility] for a number of days due to difficulty planning his discharge. 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 The patient's belongings had to be retrieved from his hotel. Additionally, nursing staff had to assist family in booking a plane ticket from [place], [place] to [place], [place]. Eventually, all of his travel was booked and the patient was discharged with a prescription for Bactrim DS to continue treatment of his foot wound. A great deal of time was spent counseling the patient about the importance of diabetes management. HE was provided prescriptions for his insulin as well as antihypertensives. Physical Exam Vital Signs: Temp Pulse Resp BP Pulse Ox 97.6 F 75 20 132/69 H 100 11/15/18 11:31 11/15/18 11:31 11/15/18 11:31 11/15/18 11:31 11/15/18 11:31 General appearance: PRESENT: no acute distress, thin Head exam: PRESENT: atraumatic, normocephalic Eye exam: PRESENT: conjunctiva pink, EOMI, PERRLA. ABSENT: scleral icterus Ear exam: PRESENT: normal external ear exam Mouth exam: PRESENT: moist, tongue midline Neck exam: ABSENT: carotid bruit, JVD, lymphadenopathy, thyromegaly Respiratory exam: PRESENT: clear to auscultation mila, symmetrical, unlabored. ABSENT: rales, rhonchi, wheezes Cardiovascular exam: PRESENT: RRR. ABSENT: diastolic murmur, rubs, systolic murmur Pulses: PRESENT: normal radial pulses, normal dorsalis pedis pul Vascular exam: PRESENT: normal capillary refill GI/Abdominal exam: PRESENT: normal bowel sounds, soft. ABSENT: distended, guarding, mass, organolmegaly, rebound, tenderness Rectal exam: PRESENT: deferred Extremities exam: PRESENT: full ROM. ABSENT: calf tenderness, clubbing, pedal edema Musculoskeletal exam: PRESENT: deformity - AMPUTATION OF L TOE 4 & 5 Neurological exam: PRESENT: alert, awake, oriented to person, oriented to place, oriented to time, oriented to situation Psychiatric exam: PRESENT: appropriate affect, normal mood. ABSENT: homicidal ideation, suicidal ideation Skin exam: PRESENT: dry, intact, warm. ABSENT: cyanosis, rash Results Laboratory Results: 11/15/18 05:40 11/15/18 05:40 11/08/18 16:34 Creatine Kinase 36 L Impressions: Foot X-Ray 11/08/18 13:39 IMPRESSION: No evidence of osteomyelitis. Elbow X-Ray 11/11/18 11:18 IMPRESSION: Small joint effusion. No acute osseous finding. Status: Imported from PACS Qualifiers - * PATIENT BEING DISCHARGED WITH ANY OF THE FOLLOWING DIAGNOSIS: No Acute Heart Failure - Is this a Heart Failure Patient?: No Plan Discharge Plan: DISCHARGE HOME TO [place]. INSTRUCTED PATIENT TO FOLLOW UP AT HIS LOCAL HOSPITAL/ER TO HAVE STITCHES REMOVED IN A WEEK. THE PATIENT WAS ADVISED TO STAY AWAY FROM PUBLIC POOLS WHILE HIS WOUND IS HEALING. ADDITIONALLY, HE WAS COUNSELED ABOUT THE IMPORTANCE OF MANAGING HIS DIABETES. Time Spent: Greater than 30 Minutes
== END 2018-11-15 15:29 | disposition home or self-care (01) | DRG 616 ==
LOC: ER 12:51 → EH 17:24 → 3S 21:51
PROVIDERS: ADMIT Internal Medicine; ATTEND Internal Medicine
PROC: 0Y6Y0Z0 Detachment at Left 5th Toe, Complete, Open Approach (ICD-10-PCS; 2018-11-08)
PROC: 0Y6W0Z0 Detachment at Left 4th Toe, Complete, Open Approach (ICD-10-PCS; principal; 2018-11-08 20:00)
DX: E10.621 Type 1 diabetes mellitus with foot ulcer (principal); A48.0 Gas gangrene; E10.52 Type 1 diabetes mellitus with diabetic peripheral angiopathy with gangrene; L97.518 Non-pressure chronic ulcer of other part of right foot with other specified severity; L03.032 Cellulitis of left toe; B95.1 Streptococcus, group B, as the cause of diseases classified elsewhere; B95.62 Methicillin resistant Staphylococcus aureus infection as the cause of diseases classified elsewhere; I10 Essential (primary) hypertension; M79.672 Pain in left foot; G40.909 Epilepsy, unspecified, not intractable, without status epilepticus; F17.210 Nicotine dependence, cigarettes, uncomplicated
CPT/HCPCS: 01480; 36415; 80048; 80053; 80061; 80202; 81001; 82550; 82803; 82962; 83036; 83735; 84100; 85025; 85027; 85652; 86140; 87040; 87070; 87075; 87077; 87186; 87205; 88305; 88311; 93925; 96365; 96367; 96375; 99284; J0131; J0330; J1170; J1650; J1815; J1885; J2250; J2270; J2370; J2405; J2543; J2704; J2765; J3010; J3370; J3490; J7030; J7050; J7060; J7620